=== PATIENT | female | born 1975 | race Caucasian/White ===

== ENCOUNTER 2016-11-04 08:00 | Emergency (ER) | payer MEDICARE, OTHER ==
[2016-11-04 08:22] VITALS: BP 138/94
[2016-11-04] MEDS ORDERED: diphenhydrAMINE HCL 50 MG/ML VIAL IV ONE (08:23)
[2016-11-04] MEDS ORDERED: KETOROLAC TROMETHAMINE 30 MG/ML VIAL IV ONE (08:23)
[2016-11-04] MEDS ORDERED: NORMAL SALINE 1,000 ML IV ONE (08:23)
[2016-11-04] MEDS ORDERED: HYDROcodone/ACETAMINOPHEN 1 EACH TABLET PO ONE (08:23)
[2016-11-04] MEDS ORDERED: METOCLOPRAMIDE HCL 5 MG/ML VIAL IV ONE (08:23)
--- OUTSIDE RECORDS SUMMARY | 2016-11-04 08:26 | XMS REPORT | Continuity of Care Document ---
:1975 Author Organization [facility] ([facility]) Address [address] [place] [address] Phone [phone] Care Team Providers Name Role Phone NenaRupinderCresencio Robin Primary Care Provider [phone] Source Comments This disclosure is being made pursuant to the Care Everywhere program, applicable federal and state laws, and may not contain all informaitonavailable regarding this patient.[facility] ([facility]) Active Allergies and Adverse Reactions Allergen Noted Date Severity Reactions Comments Morphine 02/25/2015 Rash Current Medications Prescription Sig. Disp. Refills Start Date End Date Status ALPRAZolam 1 mg Take 1 mg by mouth 3 Active tablet times daily as needed (anxiety). busPIRone 30 mg Take 30 mg by mouth Active tablet 2 times daily. bisacodyl 5 mg EC Take 5 mg by mouth Active tablet every 2 days as needed for Constipation. psyllium (METAMUCIL Take 3.4 g by mouth Active SF) powder every 48 hours. Dilute in at least 8 ounces of water. zonisamide 100 mg Take 200 mg by mouth Active capsule 2 times daily. lansoprazole 30 mg Take 30 mg by mouth Active capsule 2 times daily. sodium chloride 0.9 Use to dampen gauze 2 Bottle 3 04/25/2016 Active % irrigation simethicone 80 mg Take 1 tablet (80 mg 60 tablet 1 05/09/2016 Active chewable tablet total) by mouth 4 times daily as needed for Flatulence. Adhesive Tape 1 Patch by Apply 10 Each 1 05/09/2016 Active (MEDIPORE) 2 X 10 externally route 2 "-yard tape times daily. buPROPion Take 450 mg by mouth Active (WELLBUTRIN XL) 150 every morning. mg extended release tablet 24 hour docusate 100 mg Take 200 mg by mouth Active capsule 2 times daily. sucralfate 1000 mg Take 1,000 mg by Active tablet mouth before meals and at bedtime as needed. lidocaine 5 % Apply topically 2 Active ointment times daily as needed. hydrOXYzine pamoate Take 100 mg by mouth Active 100 mg capsule every 8 hours as needed for Anxiety. mirtazapine 45 mg Take 45 mg by mouth Active tablet at bedtime. albuterol 90 Use 1 Puff by Active mcg/Actuation inhalation every 4 inhaler hours as needed. oxyCODONE-acetamino Take 1-2 tablets by 85 tablet 0 07/17/2016 Active phen 5-325 mg per mouth every 4 hours tablet as needed for pain. Do NOT exceed 4000 mg of acetaminophen per 24 hours. polyethylene glycol Take 17 g by mouth 30 Each 0 07/17/2016 Active 3350 17 gram packet daily as needed. oxyCODONE-acetamino Take 1-2 tablets by 20 tablet 0 07/27/2016 Active phen 5-325 mg per mouth every 6 hours tablet as needed. Do NOT exceed 4000 mg of acetaminophen per 24 hours. sennosides 8.6 mg Take 1 tablet (8.6 50 tablet 0 07/27/2016 Active tablet mg total) by mouth 2 times daily. docusate 100 mg Take 1 capsule (100 50 capsule 0 07/27/2016 Active capsule mg total) by mouth 2 times daily as needed. Active Problems Problem Noted Date PONV (postoperative nausea and vomiting) 07/16/2016 Wound infection after surgery 04/20/2016 Sepsis (A41.9) 04/17/2016 Hypokalemia 04/07/2016 Overview: Replete potassium and monitor levels Hypophosphatemia 04/07/2016 Overview: Replete and monitor levels Marginal ulcer 04/04/2016 Gastric perforation 04/04/2016 Chronic back pain 02/26/2015 Most Recent Encounters Date Type Specialty Providers Description 08/23/2016 Hospital Encounter Acute Care Surgery Default, Other Chief Comp : Patient Billg - Defo Reported Reason For Visit Social History Tobacco Use Types Packs/Day Years Used Date Current Every Day Smoker Cigarettes 0.25 Smokeless Tobacco: Never Used Last Filed Vital Signs Vital Sign Reading Time Taken Blood Pressure 126/82 07/27/2016 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 82 07/27/2016 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 Temperature 36.5 C (97.7 F) 07/27/2016 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 Respiratory Rate 16 07/17/2016 3:28 PM CDT Height 1.549 m (5' 1") 07/17/2016 4:47 AM CDT Weight 64.05 kg (141 lb 3.3 oz) 07/27/2016 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 Body Mass Index 26.69 07/27/2016 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 Oxygen Saturation 98% 07/17/2016 11:58 AM CDT Plan of Care Date Type Specialty Providers Description 12/04/2016 Appointment Srg Tristen Anand MD Chief Comp: Patient [address] [place] [address] [phone] (Fax) Health Maintenance Due Date Last Done Comments Hepatitis B Vaccine (1 of 3 - Primary Series) 1975 Tdap Vaccine 1986 Lipid Disorder Screening 1993 MMR Vaccine 1993 Td Vaccine 1993 Pneumococcal Vaccine (1 of 1 - PPSV23) 1994 Cervical Cancer Screening 2005 Mammogram 2015 Influenza Vaccine: Seasonal (#1) 04/16/2016 Results from Last 3 Months Not on file
[2016-11-04] MEDS ORDERED: HYDROcodone/ACETAMINOPHEN 1 EACH TABLET ONE (08:29)
[2016-11-04] MEDS ORDERED: DIVALPROEX SODIUM 500 MG TABLET.DR PO ONE (08:45)
--- NOTE | 2016-11-04 08:48 | ERNOTE ---
Upper Extremity HPI - Narrative Date of Service: 11/04/16 - General Extremities Pain Location: shoulder: left Time Seen by Provider: 11/04/16 08:11 Source: patient, family Exam Limitations: no limitations - Immun/Allergies/Home Medications Immunizations: IMMUNIZATION HX Immunizations Up to Date Yes History of Influenza Vaccine No Hx Pneumococcal Vaccination No Allergies/Adverse Reactions: Allergies Allergy/AdvReac Type Severity Reaction Status Date / Time No Known Drug Allergies Allergy Verified 09/11/16 11:45 Home Medications: HOME MEDICATIONS Lansoprazole [Prevacid] 30 mg PO DAILY 08/17/12 [Last Taken 01/29/16] Cyanocobalamin (Vitamin B-12) [Vitamin B-12] 1 tab PO DAILY 10/04/12 [Last Taken 01/29/16] Albuterol Sulfate [Albuterol Sulfate Hfa] 2 puff IH Q4H PRN 09/24/13 [Last Taken Unknown] Bupropion HCl [Wellbutrin Xl] 150 mg PO HS 10/11/13 [Last Taken 01/28/16 21:00] Albuterol Sulfate 2.5 mg IH Q4H PRN #25 vial.neb 11/28/15 [Last Taken Unknown] Alprazolam [Xanax Xr] 3 mg PO DAILY 01/29/16 [Last Taken 01/29/16] Bupropion HCl [Wellbutrin] 300 mg PO DAILY 01/29/16 [Last Taken 01/29/16] Trazodone HCl [Oleptro ER] 150 mg PO HS 01/29/16 [Last Taken 01/28/16 21:00] Zonisamide 50 mg PO TID 01/29/16 [Last Taken 01/29/16 17:00] hydrOXYzine PAMOATE [Vistaril] 100 mg PO BID 01/30/16 [Last Taken 01/29/16] Bisacodyl [Laxative] 5 mg PO Q48H PRN #60 tablet 03/11/16 [Last Taken Unknown] Polyethylene Glycol 3350 [Miralax] 17 gm PO BID #1 bottle 03/11/16 [Last Taken Unknown] Psyllium Husk (with Sugar) [Metamucil] 1 each PO BID #1 bottle 03/11/16 [Last Taken Unknown] Promethazine HCl [Phenergan] 25 mg PO QID PRN #30 tab 05/29/16 [Last Taken Unknown] Fluconazole [Diflucan] 150 mg PO DAILY #1 tablet 07/21/16 [Last Taken Unknown] Vicodin 5-300 mg Tablet 10/19/16 [Last Taken Unknown] Divalproex Sodium [Depakote ER] 500 mg PO DAILY #30 tab 11/04/16 [Last Taken Unknown] HYDROcodone/ACETAMINOPHEN [[place] 5-325] 2 tab PO QID PRN #32 tab 11/04/16 [Last Taken Unknown] - History of Present Illness Narrative: Recent left shoulder surgery by Dr. Carballo. Prolong PT course is planned. May take 6-12 months to recover. Doing PT at [facility]. Out of pain meds. Dr. Carballo' office said he is out of town due to a in the family, and won' t be back till Saturday next week. She has an appt with him next week. The office instructed her to go to an emergency room to get her pain med refilled till then. About a week ago, while in the car, had a generalized tonic clonic seizure. Witnessed by spouse. No prior. Incommunicado during. Incontinent of urine. Drowsy after. Headache and facial pain ever since. Facial pain has been treated as a sinus infection. Neither Levaquin nor Zithromax have helped. There is a history of migraine. Occurred: other Location of Incident: other Severity: moderate Method of Injury: Reports: other Reason for Fall: Reports: other - no fall Loss of Consciousness: Reports: prolonged (minutes) Modifying Factors - (Improves): Reports: other - nothin Modifying Factors - (Worsens): Reports: jarring, movement - worsens left shoulder pain Associated Symptoms: Reports: weakness, loss of power (lt arm) Other Injuries: Reports: none Prior Treament: Reports: recently seen, treated by physician. Denies: currently on antibiotics Review of Systems - Review of Systems Constitutional: Present: no symptoms reported EYE: Present: no symptoms reported ENT: Present: See HPI Respiratory: Present: no symptoms reported Cardiology: Present: no symptoms reported Gastrointestinal/Abdominal: Present: no symptoms reported Genitourinary: Present: no symptoms reported Musculoskeletal: Present: See HPI Skin: Present: no symptoms reported Neurological: Present: See HPI Endocrine: Present: no symptoms reported Hematologic/Lymphatic: Present: no symptoms reported Psych: Present: no symptoms reported All Other Systems: All systems neg except as marked - Patient's Past Medical History Patient History - Medical: ADHD, Anxiety, Chronic Pain, Diabetes Type 2, Depression, Migraines Patient History - Cardiac/Respiratory: No pertinent hx Patient History - Cancer: No Hx of Cancer Patient History - Surgical Procedures: Back Surgery, Cholecystectomy, Colon Resection, Colonoscopy, EGD, Gastric Bypass, Hysterectomy, Tubal Ligation, Other Patient History - Other: None LMP (females 10-50): hysterectomy - Family History Mother Family History - Medical: History Unknown faher Family History - Medical: History Unknown, Other Family History - Cardiac/Respiratory: Coronary Heart Disease - Social History Living Situations: significant other Abuse History: No History of abuse Psych History: No pertinent hx Does anyone smoke in the home?: Yes Smoking Status: Current every day smoker Have you smoked in the past 12 months: Yes Do you dip or chew tobacco: No Alcohol Use: none Drug Use: none - Immunizations Immunizations Up to Date: Yes Hx Pneumococcal Vaccination: No History of Influenza Vaccine: No Physical Exam - Physical Exam General Appearance: Present: wd/wn, alert, no apparent distress Eye Exam: Normal inspection: bilateral, PERRL: bilateral, EOMI: bilateral Ears, Nose, Throat: Present: normal ENT inspection, hearing grossly normal Neck: Present: normal inspection, tender lateral, tender posterior midline Respiratory: Present: no respiratory distress, normal breath sounds Cardiovascular/Chest: Present: regular rate, rhythm, no murmur Gastrointestinal/Abdominal: Present: normal bowel sounds, nontender, nondistended, soft, no organomegaly Back Exam: Present: vertebral tenderness - LS spine tender Extremity Exam: Present: normal inspection, no edema Neurological Exam: Present: alert, oriented, normal mood/affect Skin Exam: Present: normal color, warm/dry ED Progress - Results and Orders Patient's Lab Results:: I have reviewed the patient's lab results. - Vital Signs Patient's Vital Signs:: I have reviewed the patient's vital signs. Vital Signs: Vital Signs 11/04/16 08:09 Pulse Rate 92 Respiratory 16 Rate Blood Pressure 138/94 O2 Sat by Pulse 98 Oximetry - CT/Ultrasound CT/Ultrasound Narrative: I reviewed the CT of the brain and sinuses report, normal. - Progress/Reassessment Chief Complaint: Shoulder Injury/Pain Progress Note-Subjective: 11/04/16 10:04 Unable to obtain IV access while in the ER, so intended meds were given IM. CT of head and sinuses normal. Probably had her first seizure a week ago. Will start with anti seizure medicine and advise careful followup next week. Departure Clinical Impression: multiple medical problems. , Seizure Chronic pain Qualifiers: Chronic pain type: chronic pain syndrome Qualified Code(s): G89.4 - Chronic pain syndrome Migraine Qualifiers: Migraine type: without aura Status migrainosus presence: without status migrainosus Intractability: not intractable Qualified Code(s): G43.009 - Migraine without aura, not intractable, without status migrainosus - Departure Disposition: Home self-care Condition: Good Instructions: Seizure, Adult, [id number], Chronic Pain, Migraine Headache, [id number] Additional Instructions: Followup with your doctor next week. You need a brain MRI and an EEG. Continue with your physical therapy. [place] and [place] law prohibit driving until you have been seizure free for 6 months. Prescriptions: Divalproex Sodium [Depakote ER] 500 mg PO DAILY #30 tab HYDROcodone/ACETAMINOPHEN [[place] 5-325] 2 tab PO QID PRN #32 tab PRN Reason: Pain
[2016-11-04] MEDS ORDERED: KETOROLAC TROMETHAMINE 60 MG/2 ML VIAL IM ONE ×2 (09:59→10:06)
[2016-11-04] MEDS ORDERED: diphenhydrAMINE HCL 50 MG/ML VIAL IM ONE (09:59)
[2016-11-04] MEDS ORDERED: METOCLOPRAMIDE HCL 5 MG/ML VIAL IM ONE (09:59)
[2016-11-04] MEDS ORDERED: METOCLOPRAMIDE HCL 5 MG/ML VIAL ONE (10:06)
[2016-11-04] MEDS ORDERED: diphenhydrAMINE HCL 50 MG/ML VIAL ONE (10:06)
== END 2016-11-04 10:24 | disposition home or self-care (01) ==
LOC: ER 08:00
DX: R56.9 Unspecified convulsions (principal); G43.009 Migraine without aura, not intractable, without status migrainosus; F17.210 Nicotine dependence, cigarettes, uncomplicated

== ENCOUNTER 2016-12-31 20:08 | Emergency (ER) | payer MEDICARE, OTHER ==
[2016-12-31 20:30] VITALS: BP 121/78
[2016-12-31] MEDS ORDERED: DICYCLOMINE HCL 10 MG/ML AMPUL IM ONE ×2 (21:07→22:19)
[2016-12-31] MEDS ORDERED: METOCLOPRAMIDE HCL 5 MG/ML VIAL IV ONE (21:07)
--- OUTSIDE RECORDS SUMMARY | 2016-12-31 21:12 | XMS REPORT | Continuity of Care Document ---
:1975 Author Organization [facility] ([facility]) Address [address] [place] [address] Phone [phone] Care Team Providers Name Role Phone NenaRupinderCresencio Robin Primary Care Provider [phone] Source Comments This disclosure is being made pursuant to the Care Everywhere program, applicable federal and state laws, and may not contain all informaitonavailable regarding this patient.[facility] ([facility]) Active Allergies and Adverse Reactions Allergen [...] Recent Encounters Date Type Specialty Providers Description 12/04/2016 Office Visit SrTristen Courtney MD Chief Comp: Patient Reported Reason For Visit Social History Tobacco Use Types Packs/Day Years Used Date Current Every Day Smoker Cigarettes 0.25 Smokeless Tobacco: Never Used Last Filed Vital Signs Vital Sign Reading Time Taken Blood Pressure 126/82 07/27/2016 9:[address] [employer]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
--- OUTSIDE RECORDS SUMMARY | 2016-12-31 21:12 | XMS REPORT | Continuity of Care Document ---
:1975 Author Organization [facility] [place] [address] Care Team Providers Name Role Phone Bernardo Resendez V Primary Care Provider [phone] Source Comments This disclosure is being made pursuant to the 10Six program and maynot contain all information available regarding this patient.[facility] Active Allergies and Adverse Reactions Allergen Noted Date Severity Reactions Comments Morphine Sulfate 12/23/2016 Unknown Current Medications Be aware that medications may not be up to date as of this document. Alwaysverify current medications with the patient. Prescription Sig. Disp. Refills Start Date End Date Status PROAIR HFA 108 (90 Inhale 1 puff 3 10/08/2016 Active Base) MCG/ACT inhaler into the lungs every 4 (four) to 6 (six) hours as needed. alprazolam (XANAX) 2 Take 1 tablet 0 12/17/2016 Active MG tablet by mouth 2 (two) times daily. And as needed buPROPion XL Take 1 tablet 1 12/17/2016 Active (WELLBUTRIN XL) 300 MG by mouth 24 hr tablet daily. Take with 150 mg to equal 450 mg daily buPROPion XL Take 1 tablet 1 12/17/2016 Active (WELLBUTRIN XL) 150 MG by mouth 24 hr tablet daily. Take with 300 mg tab to equal 450 mg oral daily. carisoprodol (SOMA) Take 1 tablet 0 12/17/2016 Active 350 MG tablet by mouth 4 (four) times daily. HYDROcodone-acetaminop Take 1 tablet 0 12/17/2016 Active hen (NORCO) 5-325 MG by mouth every per tablet 8 (eight) hours as needed. hydrOXYzine (VISTARIL) Take 1 capsule 1 12/17/2016 Active 100 MG capsule by mouth 3 (three) times daily as needed. For anxiety sucralfate (CARAFATE) Take 1 tablet 3 12/17/2016 Active 1 g tablet by mouth 4 (four) times daily. zonisamide (ZONEGRAN) Take 2 1 12/17/2016 Active 100 MG capsule capsules by mouth 2 (two) times daily. lisinopril Take 5 mg by 2 12/17/2016 Active (PRINIVIL,ZESTRIL) 5 mouth daily. MG tablet magnesium citrate Take 296 mLs 296 mL 0 12/31/2016 12/31/2016 Active solution by mouth once. cyclobenzaprine Take 1 tablet 2 11/10/2016 12/31/2016 Discontinued (FLEXERIL) 10 MG by mouth 3 tablet (three) times daily. divalproex ER Take 500 mg by 0 11/04/2016 12/31/2016 Discontinued (DEPAKOTE EXTENDED mouth daily. RELEASE) 500 MG 24 hr tablet Active Problems Problem Noted Date GERD (gastroesophageal reflux disease) 12/23/2016 Essential hypertension, benign 12/23/2016 Post traumatic stress disorder (PTSD) 12/23/2016 Generalized anxiety disorder 12/23/2016 Bipolar disorder (HCC) 12/23/2016 Most Recent Encounters Date Type Specialty Providers Description 12/31/2016 Office Visit Family Medicine Bernardo Resendez V, Weight gain ( Primary Dx); Chronic low back pain without sciatica, unspecified back pain laterality; Constipation, unspecified constipation type 12/26/2016 Orders Only Provider, Not In System 12/23/2016 Abstract Family Medicine Krystal Quiroga RN Social History Tobacco Use Types Packs/Day Years Used Date Current Every Day Smoker 0.5 Alcohol Use Drinks/Week oz/Week Comments No Last Filed Vital Signs Vital Sign Reading Time Taken Blood Pressure 142/87 12/31/2016 9:24 AM CDT Pulse 98 12/31/2016 9:24 AM CDT Temperature 36.3 C (97.4 F) 12/31/2016 9:24 AM CDT Respiratory Rate 20 12/31/2016 9:24 AM CDT Height 1.6 m (5' 3") 12/31/2016 9:24 AM CDT Weight 81.375 kg (179 lb 6.4 oz) 12/31/2016 9:24 AM CDT Body Mass Index 31.79 12/31/2016 9:24 AM CDT Oxygen Saturation 97% 12/31/2016 9:24 AM CDT Plan of Care Health Maintenance Due Date Last Done Comments Pneumococcal Medium Risk 19-64 yo (1 of 1 - PPSV23) 1994 Tetanus/Pertussis (1 - Tdap) 1994 Pap Smear 1996 Influenza Immunization (#1) 2016 Results from Last 3 Months TSH (12/19/2016)Comprehensive metabolic panel (12/19/2016)CBC auto differential (12/19/2016) Component Value Range WBC Count 7.17 10^3/mL RBC 4.60 10^6/L Hemoglobin 10.7 g/dL Hematocrit 39.7 % Platelets 433 K/L Specimen BLOOD Narrative See scanned result 4-17
[2016-12-31] MEDS ORDERED: NALBUPHINE HCL 20 MG/ML AMPUL IV ONE (21:13)
--- OUTSIDE RECORDS SUMMARY | 2016-12-31 21:13 | XMS REPORT | Summary of Care ---
:1975 Author Organization [facility] Address [address] [place] [address] Care Team Providers Name Role Phone Catherine Romero Primary Care Physician Encounter Date(s): 10/17/16 - 10/17/16 [facility], [address] [place], [place] [address] Discharge Diagnosis: Rectal prolapse Discharge Disposition: Discharged to Home or Self Care Attending Physician: Tiffanie Delacruz DO Referring Physician: Tiffanie Delacruz DO Vital Signs Most recent to oldest [Reference Range]: 1 Blood Pressure [90-130/60-90 mmHg] 126/88mmHg (10/17/16 9:36 AM) Mean Arterial Pressure, Cuff 101 mmHg (10/17/16 9:36 AM) Most recent to oldest [Reference Range]: 1 Height/Length Measured 162 cm (10/17/16 9:36 AM) Weight Dosing 72.30 kg1 (10/17/16 9:39 AM) Weight Measured 72.3 kg (10/17/16 9:36 AM) BSA Measured 1.77 m2 (10/17/16 9:36 AM) Body Mass Index Measured 27.55 kg/m2 (10/17/16 9:36 AM) 1Result Comment: This result was because the dosing weight was either not entered or it is>30 days old. This result is based off: Weight Measured October 17, 2016 09:36:00 WELLNESS PROGRAM MANAGER by Kusum Carney RN Problem List Condition Effective Dates Status Health Status Informant Anxiety(Confirmed) Active patient COPD (chronic obstructive pulmonary Active patient disease)(Confirmed) Depression(Confirmed) Active patient MRSA(Confirmed)2009 Active patient Left shoulder strain(Confirmed) Active Incontinence of urine(Confirmed) Active 1in facial wound Allergies, Adverse Reactions, Alerts Substance Reaction Severity Status morphine hive Active Medications buPROPion 150 mg/12 hours (SR) oral tablet, extended release 1 tab(s), Oral, Daily, # 60 tab(s), 0 Refill(s), Start Date: 11/07/15 9:50:00 WELLNESS PROGRAM MANAGER Start Date: 11/07/15 Status: OrderedbuPROPion 300 mg/24 hours (XL) oral tablet, extended release 1 tab(s), Oral, Daily, take with 150 dose for a total of 450mg, # 30 tab(s), 0 Refill(s), Start Date: 06/13/16 14:02:00 CDT Special Instructions: take with 150 dose for a total of 450mg Start Date: 06/13/16 Status: OrderedbusPIRone 30 mg oral tablet 1 tab(s), Oral, BID, # 180 tab(s), 0 Refill(s), Start Date: 06/13/16 14:05:00 CDT Start Date: 06/13/16 Status: OrderedCarafate 1 g oral tablet 1 tab(s), Oral, QID, # 120 tab(s), 0 Refill(s), Start Date: 11/18/15 15:16:00 WELLNESS PROGRAM MANAGER Start Date: 11/18/15 Status: OrderedColace 100 mg oral capsule 1 cap(s), Oral, BID, PRN for constipation, # 20 cap(s), 0 Refill(s), Start Date : 06/13/16 14:06:00 CDT Start Date: 06/13/16 Stop Date: 07/03/16 Status: CompletedCombivent Respimat CFC free 20 mcg-100 mcg/inh inhalation aerosol 1 puff(s), Inhale, QID, # 4 gm, 0 Refill(s), Start Date: 11/07/15 9:51:00 WELLNESS PROGRAM MANAGER Special Instructions: PT states not taking Start Date: 11/07/15 Stop Date: 11/18/15 Status: Discontinueddiazepam 5 mg oral tablet 2 tab(s), Oral, TID, PRN for anxiety, 0 Refill(s), Start Date: 11/18/15 15:13: 00 WELLNESS PROGRAM MANAGER Start Date: 11/18/15 Stop Date: 03/01/16 Status: Completeddicyclomine 20 mg oral tablet 2 tab(s), Oral, QID, PRN pain moderate 4-7, 0 Refill(s), Start Date: 07/03/16 12 :45:00 CDT Start Date: 07/03/16 Status: OrderedDiflucan 150 mg oral tablet 1 tab(s), Oral, ONETIME, TAKE WHEN ABX ARE COMPLETE, # 1 tab(s), 0 Refill(s), Start Date: 07/03/16 16:10:00 CDT Special Instructions: TAKE WHEN ABX ARE COMPLETE Start Date: 07/03/16 Stop Date: 07/03/16 Status: CompletedFlexeril 10 mg oral tablet 1 tab(s), Oral, TID, PRN pain moderate 4-7, Do not work or drive with this medication, # 15 tab(s), 0 Refill(s), Start Date: 06/13/16 16:06:00 CDT Special Instructions: Do not work or drive with this medication Start Date: 06/13/16 Stop Date: 07/03/16 Status: CompletedHYDROcodone-acetaminophen 5mg-325mg oral tablet 1 tab(s), Oral, q6hr, PRN for pain, # 30 tab(s), 0 Refill(s), Start Date: 14:38:00 CDT, Pharmacy: [place], [place] Start Date: 07/05/16 Stop Date: 08/03/16 Status: CompletedhydrOXYzine pamoate 100 mg oral capsule 1 cap(s), Oral, TID, PRN for anxiety, 0 Refill(s), Start Date: 07/03/16 12:38: 00 CDT Start Date: 07/03/16 Status: OrderedhydrOXYzine pamoate 25 mg oral capsule 1 cap(s), Oral, TID, PRN for anxiety, # 40 cap(s), 0 Refill(s), Start Date: 14:06:00 CDT Start Date: 06/13/16 Stop Date: 07/03/16 Status: Completedlansoprazole 30 mg oral delayed release capsule 1 cap(s), Oral, Daily, 0 Refill(s), Start Date: 11/07/15 9:49:00 WELLNESS PROGRAM MANAGER Start Date: 11/07/15 Status: Orderedmirtazapine 15 mg oral tablet 2 tab(s), Oral, HS, # 30 tab(s), 0 Refill(s), Start Date: 06/13/16 14:08:00 CDT Start Date: 06/13/16 Status: OrderedMytab Gas 80 mg oral tablet, chewable 1 tab(s), Chewed, QID, # 12 tab(s), 0 Refill(s), Start Date: 06/13/16 14:06:00 CDT Start Date: 06/13/16 Stop Date: 07/03/16 Status: CompletedNorco 5 mg-325 mg oral tablet 1 tab(s), Oral, TID, LAST RX/MD MOE, # 60 tab(s), 0 Refill(s), Start Date: 03/01 11:32:00 CDT Special Instructions: LAST RX/MD MOE Start Date: 03/01/16 Stop Date: 06/13/16 Status: CompletedOmnicef 300 mg oral capsule 1 cap(s), Oral, q12hr, X 7 days, # 14 cap(s), 0 Refill(s), Start Date: 07/03/16 16:10:00 CDT Start Date: 07/03/16 Stop Date: 07/10/16 Status: Completedorphenadrine 100 mg oral tablet, extended release 1 tab(s), Oral, TID, PRN anxiety, # 20 tab(s), 0 Refill(s), Start Date: 14:07:00 CDT Start Date: 06/13/16 Stop Date: 06/23/16 Status: OrderedoxyCODONE-acetaminophen 5 mg-325 mg oral tablet See Instructions, 1 tab(s) Oral q4-6hr interval Max 7 per day, # 120 tab(s), 0 Refill(s), Start Date: 07/28/15 14:55:00 WELLNESS PROGRAM MANAGER, other reason (Rx) Special Instructions: 1 tab(s) Oral q4-6hr interval Max 7 per day Start Date: 07/28/15 Stop Date: 11/07/15 Status: CompletedoxyCODONE-acetaminophen 5 mg-325 mg oral tablet 1 tab(s), Oral, q4hr, PRN for pain, 0 Refill(s), Start Date: 07/03/16 12:47:00 CDT Start Date: 07/03/16 Stop Date: 08/03/16 Status: CompletedoxyCODONE-acetaminophen 5 mg-325 mg oral tablet See Instructions, 1 tab(s) Oral q4-6hr interval Max 7 per day, # 90 tab(s), 0 Refill(s), Start Date: 07/01/15 12:08:00 CDT, other reason (Rx) Special Instructions: 1 tab(s) Oral q4-6hr interval Max 7 per day Start Date: 07/01/15 Stop Date: 08/01/15 Status: CompletedoxyCODONE-acetaminophen 5 mg-325 mg oral tablet 2 tab(s), Oral, q6hr, PRN for pain, 0 Refill(s), Start Date: 11/18/15 15:13:00 WELLNESS PROGRAM MANAGER Start Date: 11/18/15 Stop Date: 11/22/15 Status: DiscontinuedPercocet 10/325 oral tablet 1 tab(s), Oral, q4hr, PRN for pain, Max 6 per day, X 30 days, # 90 tab(s), 0 Refill(s), Start Date: 11/22/15 12:26:00 WELLNESS PROGRAM MANAGER, other reason (Rx) Special Instructions: Max 6 per day Start Date: 11/22/15 Stop Date: 12/22/15 Status: CompletedPercocet 5/325 oral tablet 1 or 2 tabs, Oral, q4hr, PRN pain moderate 4-7, Do not work or drive with this medication, X 7 days, # 10 tab(s), 0 Refill(s), Start Date: 06/13/16 15:57:00 CDT Special Instructions: Do not work or drive with this medication Start Date: 06/13/16 Stop Date: 06/20/16 Status: CompletedPercocet 5/325 oral tablet 1-2 tabs, Oral, q6hr interval, X 10 days, # 40 tab(s), 0 Refill(s), Start Date: 08/07/16 9:33:00 WELLNESS PROGRAM MANAGER Start Date: 08/07/16 Stop Date: 08/17/16 Status: CompletedProAir HFA 90 mcg/inh inhalation aerosol 1 puff(s), Inhale, q4hr, PRN for wheezing, # 1 boxes, 0 Refill(s), Start Date: 11/07/15 9:51:00 WELLNESS PROGRAM MANAGER Start Date: 11/07/15 Status: Orderedpromethazine 25 mg oral tablet 1 tab(s), Oral, QID, PRN for nausea/vomiting, # 60 tab(s), 0 Refill(s), Start Date: 07/03/16 12:44:00 CDT Start Date: 07/03/16 Status: OrderedSoma 350 mg oral tablet 1 tab(s), Oral, QID, 0 Refill(s), Start Date: 11/07/15 9:50:00 WELLNESS PROGRAM MANAGER Special Instructions: PT states not taking Start Date: 11/07/15 Stop Date: 11/18/15 Status: DiscontinuedValium 5 mg oral tablet See Instructions, 1 tab(s) Oral ONETIME 30-45 minutes prior to procedure, # 1 tab(s), 0 Refill(s), Start Date: 01/20/16 9:57:00 CDT, Pharmacy: [place], [place] Special Instructions: 1 tab(s) Oral ONETIME 30-45 minutes prior to procedure Start Date: 01/20/16 Stop Date: 03/01/16 Status: CompletedXanax 1 mg oral tablet 1 tab(s), Oral, TID, PRN for anxiety, 0 Refill(s), Start Date: 06/13/16 14:05: 00 CDT Start Date: 06/13/16 Status: Orderedzonisamide 100 mg oral capsule 2 cap(s), Oral, BID, # 120 cap(s), 0 Refill(s), Start Date: 07/03/16 12:41:00 CDT Start Date: 07/03/16 Status: Orderedzonisamide 25 mg oral capsule 1 cap(s), Oral, TID, # 60 cap(s), 0 Refill(s), Start Date: 06/13/16 14:01:00 CDT Start Date: 06/13/16 Stop Date: 07/03/16 Status: Completed Results No data available for this section Immunizations No data available for this section Procedures Procedure Date Related Diagnosis Body Site Arthroscopy Shoulder (Left)1 08/07/16 Laparotomy2 04/14/16 Fusion Cervical (SCIP)3 11/21/15 Cholecystectomy Gastric bypass H/O tubal ligation H/O: hysterectomy Laminectomy4 1auto-populated from documented surgical [id number] states for perforated [id number] from documented surgical [id number] fusion for L4 and L5 Social History No data available for this section Assessment and Plan No data available for this section
--- OUTSIDE RECORDS SUMMARY | 2016-12-31 21:13 | XMS REPORT | Summary of Care ---
:1975 Author Organization [facility] Address [address] [place] [id number] Care Team Providers Name Role Phone Fernandaramon Catherine Primary Care Physician Encounter Date(s): 10/26/16 - 10/26/[address] [address]- [facility] Discharge Diagnosis: Acute maxillary sinusitis Discharge Disposition: 01 Discharged to Home or Self Care Attending Physician: Juan C Guardado MD Admitting Physician: Juan C Guardado MD Vital Signs Most recent to oldest 1 2 3 [Reference Range]: Temperature Temporal Artery 37.0 DegC [36.0-38.0 DegC] (10/26/16 10:18 AM) Heart Rate Monitored [60-100 80 bpm 81 bpm 91 bpm bpm] (10/26/16 1:30 PM) (10/26/16 1:00 PM) (10/26/16 12:25 PM) Respiratory Rate [12-20 16 br/min 16 br/min 16 br/min br/min] (10/26/16 1:30 PM) (10/26/16 1:00 PM) (10/26/16 12:25 PM) SpO2 97 % 95 % 98 % (10/26/16 1:30 PM) (10/26/16 1:00 PM) (10/26/16 12:30 PM) Blood Pressure [90-130/60-90 105/62mmHg 105/62mmHg 120/71mmHg mmHg] (10/26/16 1:30 PM) (10/26/16 1:00 PM) (10/26/16 12:30 PM) Mean Arterial Pressure 71 mmHg 71 mmHg 82 mmHg Monitor Measure (10/26/16 1:30 PM) (10/26/16 1:00 PM) (10/26/16 12:30 PM) Most recent to oldest [Reference Range]: 1 2 3 Weight Estimated 68.03 kg (10/26/16 10:18 AM) Weight Dosing 68.03 kg1 (10/26/16 10:20 AM) 1Result Comment: This result was because the dosing weight was either not entered or it is>30 days old. This result is based off: Weight Estimated October 26, 2016 10:18:00 BASKETBALLS AND FOOTBALLS REVERSER by Bisi Arreguin RN Problem List Condition Effective Dates Status Health Status Informant Acute maxillary sinusitis(Confirmed) Active Anxiety(Confirmed) Active patient COPD (chronic obstructive pulmonary Active patient disease)(Confirmed) Depression(Confirmed) Active patient MRSA(Confirmed)2009 Active patient Left shoulder strain(Confirmed) Active Incontinence of urine(Confirmed) Active 1in facial wound Allergies, Adverse Reactions, Alerts Substance Reaction Severity Status morphine hive Active Medications amoxicillin 875 mg oral tablet 1 tab(s), Oral, BID, # 20 tab(s), 0 Refill(s), Start Date: 10/26/16 13:03:00 BASKETBALLS AND FOOTBALLS REVERSER Start Date: 10/26/16 Stop Date: 11/05/16 Status: OrderedbuPROPion 150 mg/12 hours (SR) oral tablet, extended release 1 tab(s), Oral, Daily, # 60 tab(s), 0 Refill(s), Start Date: 11/07/15 9:50:00 BASKETBALLS AND FOOTBALLS REVERSER Start Date: 11/07/15 Status: OrderedbuPROPion 300 mg/24 [...] tab(s), 0 Refill(s), Start Date: 11/18/15 15:16:00 BASKETBALLS AND FOOTBALLS REVERSER Start Date: 11/18/15 Status: OrderedColace 100 mg oral capsule 1 cap(s), Oral, BID, PRN for constipation, # 20 cap(s), 0 Refill(s), Start Date : 06/13/16 14:06:00 CDT Start Date: 06/13/16 Stop Date: 07/03/16 Status: CompletedCombivent Respimat CFC free 20 mcg-100 mcg/inh inhalation aerosol 1 puff(s), Inhale, QID, # 4 gm, 0 Refill(s), Start Date: 11/07/15 9:51:00 BASKETBALLS AND FOOTBALLS REVERSER Special Instructions: PT states not taking Start Date: 11/07/15 Stop Date: 11/18/15 Status: Discontinueddiazepam 5 mg oral tablet 2 tab(s), Oral, TID, PRN for anxiety, 0 Refill(s), Start Date: 11/18/15 15:13: 00 BASKETBALLS AND FOOTBALLS REVERSER Start Date: 11/18/15 Stop Date: 03/01/16 Status: Completeddicyclomine 20 mg oral tablet 2 tab(s), Oral, QID, PRN pain moderate 4-7, 0 Refill(s), Start Date: 07/03/16 12 :45:00 CDT Start Date: 07/03/16 Stop Date: 10/26/16 Status: CompletedDiflucan 150 mg oral tablet 1 tab(s), Oral, [...] 0 Refill(s), Start Date: 14:38:00 CDT, Pharmacy: [place], [place] Start Date: 07/05/16 Stop Date: 08/03/16 [...] Daily, 0 Refill(s), Start Date: 11/07/15 9:49:00 BASKETBALLS AND FOOTBALLS REVERSER Start Date: 11/07/15 Status: Orderedmirtazapine 15 mg oral tablet 2 tab(s), Oral, HS, # 30 tab(s), 0 Refill(s), Start Date: 06/13/16 14:08:00 CDT Start Date: 06/13/16 Stop Date: 10/26/16 Status: CompletedMytab Gas 80 mg oral tablet, chewable 1 tab(s), Chewed, QID, # 12 tab(s), 0 Refill(s), Start Date: 06/13/16 14:06:00 CDT Start Date: 06/13/16 Stop Date: 07/03/16 Status: CompletedNaprosyn 500 mg oral tablet 1 tab(s), Oral, BID, # 20 tab(s), 0 Refill(s), Start Date: 10/26/16 13:03:00 BASKETBALLS AND FOOTBALLS REVERSER Start Date: 10/26/16 Stop Date: 11/05/16 Status: OrderedNorco 5 mg-325 mg oral tablet 1 tab(s), Oral, TID, LAST RX/RDF,MD, # 60 tab(s), 0 Refill(s), Start Date: [...] tab(s), 0 Refill(s), Start Date: 07/28/15 14:55:00 BASKETBALLS AND FOOTBALLS REVERSER, other reason (Rx) Special Instructions: 1 tab(s) [...] pain, 0 Refill(s), Start Date: 11/18/15 15:13:00 BASKETBALLS AND FOOTBALLS REVERSER Start Date: 11/18/15 Stop Date: 11/22/15 Status: DiscontinuedPercocet 10/325 oral tablet 1 tab(s), Oral, q4hr, PRN for pain, Max 6 per day, X 30 days, # 90 tab(s), 0 Refill(s), Start Date: 11/22/15 12:26:00 BASKETBALLS AND FOOTBALLS REVERSER, other reason (Rx) Special Instructions: Max 6 [...] tab(s), 0 Refill(s), Start Date: 08/07/16 9:33:00 BASKETBALLS AND FOOTBALLS REVERSER Start Date: 08/07/16 Stop Date: 08/17/16 Status: CompletedProAir HFA 90 mcg/inh inhalation aerosol 1 puff(s), Inhale, q4hr, PRN for wheezing, # 1 boxes, 0 Refill(s), Start Date: 11/07/15 9:51:00 BASKETBALLS AND FOOTBALLS REVERSER Start Date: 11/07/15 Status: Orderedpromethazine 25 mg oral tablet 1 tab(s), Oral, QID, PRN for nausea/vomiting, # 60 tab(s), 0 Refill(s), Start Date: 07/03/16 12:44:00 CDT Start Date: 07/03/16 Stop Date: 10/26/16 Status: CompletedSoma 350 mg oral tablet 1 tab(s), Oral, QID, 0 Refill(s), Start Date: 11/07/15 9:50:00 BASKETBALLS AND FOOTBALLS REVERSER Special Instructions: PT states not taking Start Date: 11/07/15 Stop Date: 11/18/15 Status: DiscontinuedtraMADol 50 mg oral tablet 1 tab(s), Oral, q4hr interval, PRN as needed for pain, # 24 tab(s), 0 Refill(s) , Start Date: 10/26/16 13:03:00 BASKETBALLS AND FOOTBALLS REVERSER Start Date: 10/26/16 Stop Date: 10/31/16 Status: OrderedValium 5 mg oral tablet See Instructions, 1 tab(s) Oral ONETIME 30-45 minutes prior to procedure, # 1 tab(s), 0 Refill(s), Start Date: 01/20/16 9:57:00 CDT, Pharmacy: [place], [place] Special Instructions: 1 tab(s) Oral ONETIME [...] 06/13/16 Stop Date: 07/03/16 Status: Completed Results Patient Viewable Results Most recent to oldest [Reference Range]: 1 2 WBC [4.8-10.8 thou/mm3] 6.3 thou/mm3 (10/26/16 10:36 AM) RBC [4.20-5.40 Mil/mm3] 4.05 Mil/mm3 *LOW* (10/26/16 10:36 AM) Hgb [12.0-16.0 g/dL] 9.9 g/dL *LOW* (10/26/16 10:36 AM) Hct [37.0-47.0 %] 32.4 % *LOW* (10/26/16 10:36 AM) MCV [80.0-94.0 fL] 80.0 fL (10/26/16:36 AM) MCH [25.0-38.0 pg/cell] 24.4 pg/cell *LOW* (10/26/16:36 AM) MCHC [31.0-37.0 g/dL] 30.6 g/dL *LOW* (10/26/16:36 AM) RDW [1.0-48.0 fL] 58.9 fL *HI* (10/26/16:36 AM) Platelet [130-400 thou/mm3] 368 thou/mm3 (10/26/16:36 AM) Neutrophils % Auto [50.0-75.0 %] 65.3 % (10/26/16:36 AM) Immature Granulocyte Auto [0.1-2.0 %] 0.2 % (10/26/16:36 AM) Lymphocytes % Auto [15.0-41.0 %] 25.9 % (10/26/16:36 AM) Monocytes % Auto [2.0-10.0 %] 7.6 % (10/26/16:36 AM) Eosinophils % Auto [0.0-6.0 %] 0.8 % (10/26/16:36 AM) Basophil % Auto [0.0-1.0 %] 0.2 % (10/26/16:36 AM) Neutrophils Absolute [1.5-5.9 thou/mm3] 4.2 thou/mm3 (10/26/16:36 AM) Immature Gran Absolute [0.01-0.03 thou/mm3] 0.01 thou/mm3 (10/26/16 10:36 AM) Lymphocytes Absolute [1.5-4.0 thou/mm3] 1.6 thou/mm3 (10/26/16 10:36 AM) Monocytes Absolute [0.0-0.9 thou/mm3] 0.5 thou/mm3 (10/26/16 10:36 AM) Eosinophil Absolute [0.0-0.7 thou/mm3] 0.0 thou/mm3 (10/26/16 10:36 AM) Basophil Absolute [0.0-0.2 thou/mm3] 0.0 thou/mm3 (10/26/16 10:36 AM) Sed Rate [0-20 mm/hr] 20 mm/hr (10/26/16:36 AM) Sodium Lvl [135-144 mEq/L] 137 mEq/L (10/26/16:36 AM) Potassium Lvl [3.3-4.8 mEq/L] 5.0 mEq/L *HI* (10/26/16:36 AM) Chloride Lvl [98-107 mEq/L] 106 mEq/L (10/26/16:36 AM) Bicarbonate Lvl [22-30 mmol/L] 18 mmol/L *LOW* (10/26/16 AM) Anion Gap [10.0-20.0] 18.0 (10/26/16:36 AM) Glucose Lvl [70-108 mg/dL] 98 mg/dL (10/26/16:36 AM) BUN [7-21 mg/dL] 13 mg/dL (10/26/16:36 AM) Creatinine Lvl [0.50-1.20 mg/dL] 0.84 mg/dL (10/26/16:36 AM) BUN/Creat Ratio 15.5 *NA* (10/26/1636 AM) eGFR AA [>=60] >60 (10/26/16:36 AM) eGFR BLANCA [>=60] >60 (10/26/16:36 AM) Calcium Lvl [8.6-10.2 mg/dL] 9.0 mg/dL (10/26/16:36 AM) Total Protein [6.4-8.3 g/dL] 6.8 g/dL (10/26/16:36 AM) Albumin Lvl [3.5-5.2 g/dL] 4.2 g/dL (10/26/16:36 AM) Globulin 2.6 *NA* (10/26/16:36 AM) A/G Ratio [0.9-1.8] 1.6 (10/26/16:36 AM) Bilirubin Total [0.1-1.0 mg/dL] 0.2 mg/dL (10/26/16 10:36 AM) Alkaline Phosphatase [39-129 unit/L] 89 unit/L (10/26/16 10:36 AM) AST [0-39 unit/L] 18 unit/L (10/26/16 10:36 AM) ALT [0-40 unit/L] 14 unit/L (10/26/16 10:36 AM) Procalcitonin [0.00-0.09 ng/mL] 0.22 ng/mL *HI* (10/26/16 10:36 AM) Estimated Creatinine Clearance 83.10 mL/min 90.66 mL/min (10/26/16 11:10 AM) (10/26/16 10:20 AM) Urine Amphetamine Scrn Negative (10/26/16 11:08 AM) Urine Barbiturate Scrn Negative (10/26/16 11:08 AM) Urine Benzodiazepine Scrn Negative (10/26/16 11:08 AM) Urine Cannabinoid Met Scrn Negative (10/26/16 11:08 AM) Urine Cocaine Met Scrn Negative (10/26/16 11:08 AM) Urine Methadone Scrn Negative (10/26/16 11:08 AM) Urine Opiate Scrn Negative (10/26/16 11:08 AM) Urine Phencyclidine Scrn Negative (10/26/16 11:08 AM) Urine Propoxyphene Scrn Negative (10/26/16 11:08 AM) UA Color Yellow *NA* (10/26/16 11:08 AM) Urine Clarity Clear *NA* (10/26/16 11:08 AM) Specific [place] [1.000-1.060] 1.014 (10/26/16 11:08 AM) Urine pH [5-8] 7 (10/26/16 11:08 AM) Ketones Negative (10/26/16:08 AM) Bilirubin [Negative] Negative (10/26/16:08 AM) Urine Protein [Negative] Negative (10/26/16:08 AM) Glucose [Negative] Negative (10/26/16:08 AM) Urine HGB [Negative] Negative (10/26/16 11:08 AM) Urobilinogen <2.0 *NA* (10/26/16:08 AM) Nitrite [Negative] Negative (2/10/17 11:08 AM) Leuk Esterase [Negative] Negative (10/26/16 11:08 AM) UA Ascorbic Acid [Negative] Negative (10/26/16 11:08 AM) Urine WBC [0-5] 0-5 (10/26/16 11:08 AM) Urine RBC [0-2] 0-2 (10/26/16 11:08 AM) Squamous Epi [0-5] 0-5 (10/26/16 11:08 AM) Mucus Trace (10/26/16 11:08 AM) InfluA EIA Naso [Negative] Negative1 (10/26/16 12:04 PM) InfluB EIA Naso [Negative] Negative2 (10/26/16 12:04 PM) 1Result Comment: Presumptive Negative for Influenza "A" protein antigen. Infection due to Influenza "A" cannot be ruled out. Influenza "A" antigen in the sample may be below the detection limit of thetest.2Result Comment: Presumptive Negative for Influenza "B" protein antigen. Infection due to Influenza "B" cannot be ruled out. Influenza "B" antigen in the sample may be below the detection limit of thetest. Immunizations No data available for this section Procedures Procedure Date Related Diagnosis Body Site Arthroscopy Shoulder (Left)1 08/07/16 Laparotomy2 04/14/16 Fusion Cervical (SCIP)3 11/21/15 Cholecystectomy Gastric bypass H/O tubal ligation H/O: hysterectomy Laminectomy4 1auto-populated from documented surgical [id number] states for perforated [id number] from documented surgical [id number] fusion for L4 and L5 Social History No data available for this section Assessment and Plan No data available for this section
--- OUTSIDE RECORDS SUMMARY | 2016-12-31 21:13 | XMS REPORT | Summary of Care ---
:1975 Author Organization [facility] Address [address] [place] [phone]- Care Team Providers Name Role Phone Catherine Romero Primary Care Physician Encounter Date(s): 02/09/16 - 02/09/[address] [id number] Final: Pain in left shoulder Final: Unspecified rotator cuff tear or rupture of left shoulder, not specified as traumatic Discharge Disposition: Discharged to Home or Self Care Attending Physician: Jorge Luis Fajardo MD Admitting Physician: Jorge Luis Fajardo MD Vital Signs No data available for this section Problem List Condition Effective Dates Status Health Status Informant Left shoulder strain(Confirmed) Active Incontinence of urine(Confirmed) Active Allergies, Adverse Reactions, Alerts No Known Allergies Medications buPROPion 150 mg/12 hours (SR) oral tablet, extended release 1 tab(s), Oral, BID, # 60 tab(s), 0 Refill(s), Start Date: 11/07/15 9:50:00 MEDICAL RESEARCH SCIENTIST Start Date: 11/07/15 Status: OrderedCarafate 1 g oral tablet 1 tab(s), Oral, QID, # 120 tab(s), 0 Refill(s), Start Date: 11/18/15 15:16:00 MEDICAL RESEARCH SCIENTIST Start Date: 11/18/15 Status: OrderedCombivent Respimat CFC free 20 mcg-100 mcg/inh inhalation aerosol 1 puff(s), Inhale, QID, # 4 gm, 0 Refill(s), Start Date: 11/07/15 9:51:00 MEDICAL RESEARCH SCIENTIST Special Instructions: PT states not taking Start Date: 11/07/15 Stop Date: 11/18/15 Status: Discontinueddiazepam 5 mg oral tablet 2 tab(s), Oral, TID, PRN for anxiety, 0 Refill(s), Start Date: 11/18/15 15:13: 00 MEDICAL RESEARCH SCIENTIST Start Date: 11/18/15 Stop Date: 03/01/16 Status: Completedlansoprazole 30 mg oral delayed release capsule 1 cap(s), Oral, Daily, 0 Refill(s), Start Date: 11/07/15 9:49:00 MEDICAL RESEARCH SCIENTIST Start Date: 11/07/15 Status: OrderedNorco 5 mg-325 mg oral tablet 1 tab(s), Oral, TID, LAST RX/RDMD Loc, # 60 tab(s), 0 Refill(s), Start Date: 03/01 11:32:00 CDT Special Instructions: LAST RX/MD MOE Start Date: 03/01/16 Status: OrderedoxyCODONE-acetaminophen 5 mg-325 mg oral tablet See Instructions, 1 tab(s) Oral q4-6hr interval Max 7 per day, # 120 tab(s), 0 Refill(s), Start Date: 07/28/15 14:55:00 MEDICAL RESEARCH SCIENTIST, other reason (Rx) Special Instructions: 1 tab(s) [...] pain, 0 Refill(s), Start Date: 11/18/15 15:13:00 MEDICAL RESEARCH SCIENTIST Start Date: 11/18/15 Stop Date: 11/22/15 Status: DiscontinuedPercocet 10/325 oral tablet 1 tab(s), Oral, q4hr, PRN for pain, Max 6 per day, X 30 days, # 90 tab(s), 0 Refill(s), Start Date: 11/22/15 12:26:00 MEDICAL RESEARCH SCIENTIST, other reason (Rx) Special Instructions: Max 6 per day Start Date: 11/22/15 Stop Date: 12/22/15 Status: CompletedProAir HFA 90 mcg/inh inhalation aerosol 1 puff(s), Inhale, q4hr, PRN for wheezing, # 1 boxes, 0 Refill(s), Start Date: 11/07/15 9:51:00 MEDICAL RESEARCH SCIENTIST Start Date: 11/07/15 Status: OrderedSoma 350 mg oral tablet 1 tab(s), Oral, QID, 0 Refill(s), Start Date: 11/07/15 9:50:00 MEDICAL RESEARCH SCIENTIST Special Instructions: PT states not taking Start Date: 11/07/15 Stop Date: 11/18/15 Status: DiscontinuedValium 5 mg oral tablet See Instructions, 1 tab(s) Oral ONETIME 30-45 minutes prior to procedure, # 1 tab(s), 0 Refill(s), Start Date: 01/20/16 9:57:00 CDT, Pharmacy: [facility] [place], [place] Special Instructions: 1 tab(s) Oral ONETIME 30-45 minutes prior to procedure Start Date: 01/20/16 Stop Date: 03/01/16 Status: Completedzonisamide 25 mg oral capsule TAKE 1 CAP AT BEDTIME FOR 3 DAYS, THEN TWICE A DAY FOR DAYS 4-10, THEN 1 CAP 3 TIMES A DAY Special Instructions: TAKE 1 CAP AT BEDTIME FOR 3 DAYS, THEN TWICE A DAY FOR DAYS 4-10, THEN 1 CAP 3 TIMES A DAY Start Date: 11/18/15 Status: Ordered Results No data available for this section Immunizations No data available for this section Procedures Procedure Date Related Diagnosis Body Site Fusion Cervical (SCIP)1 11/21/15 Cholecystectomy Gastric bypass H/O tubal ligation H/O: hysterectomy Laminectomy2 1auto-populated from documented surgical [id number] fusion for L4 and L5 Social History No data available for this section Assessment and Plan No data available for this section
--- OUTSIDE RECORDS SUMMARY | 2016-12-31 21:13 | XMS REPORT | Summary of Care ---
:1975 Author Organization [facility] Address [address] [place] [address] Care Team Providers Name Role Phone Catherine Romero Primary Care Physician Encounter Date(s): 10/17/16 - 10/17/16 [facility] [address], [address] [place], [place] [address] Discharge Diagnosis: Neck pain Discharge Disposition: Discharged to Home or Self Care Attending Physician: Jorge Luis Fajardo MD Referring Physician: Unknown Physician Vital Signs Most recent to oldest [Reference Range]: 1 Peripheral Pulse Rate [60-100 bpm] 92 bpm (10/17/16 1:27 PM) Blood Pressure [90-130/60-90 mmHg] 132/85mmHg *HI* (10/17/16 1:27 PM) Mean Arterial Pressure, Cuff 101 mmHg (10/17/16 1:27 PM) Most recent to oldest [Reference Range]: 1 Height/Length Measured 162 cm (10/17/16 1:27 PM) Weight Dosing 64.10 kg1 (10/17/16 1:28 PM) Weight Measured 64.1 kg (10/17/16 1:27 PM) BSA Measured 1.68 m2 (10/17/16 1:27 PM) Body Mass Index Measured 24.42 kg/m2 (10/17/16 1:27 PM) 1Result Comment: This result was because the dosing weight was either not entered or it is>30 days old. This result is based off: Weight Measured October 17, 2016 13:27:00 HAT COPYIST by Radha Moran CMA Problem List Condition Effective Dates Status Health [...] tab(s), 0 Refill(s), Start Date: 11/07/15 9:50:00 HAT COPYIST Start Date: 11/07/15 Status: OrderedbuPROPion 300 mg/24 [...] tab(s), 0 Refill(s), Start Date: 11/18/15 15:16:00 HAT COPYIST Start Date: 11/18/15 Status: OrderedColace 100 mg oral capsule 1 cap(s), Oral, BID, PRN for constipation, # 20 cap(s), 0 Refill(s), Start Date : 06/13/16 14:06:00 CDT Start Date: 06/13/16 Stop Date: 07/03/16 Status: CompletedCombivent Respimat CFC free 20 mcg-100 mcg/inh inhalation aerosol 1 puff(s), Inhale, QID, # 4 gm, 0 Refill(s), Start Date: 11/07/15 9:51:00 HAT COPYIST Special Instructions: PT states not taking Start Date: 11/07/15 Stop Date: 11/18/15 Status: Discontinueddiazepam 5 mg oral tablet 2 tab(s), Oral, TID, PRN for anxiety, 0 Refill(s), Start Date: 11/18/15 15:13: 00 HAT COPYIST Start Date: 11/18/15 Stop Date: 03/01/16 Status: [...] 0 Refill(s), Start Date: 14:38:00 CDT, Pharmacy: [place], [place] Start Date: 07/05/16 Stop Date: 08/03/16 [...] Daily, 0 Refill(s), Start Date: 11/07/15 9:49:00 HAT COPYIST Start Date: 11/07/15 Status: Orderedmirtazapine 15 mg [...] tab(s), 0 Refill(s), Start Date: 07/28/15 14:55:00 HAT COPYIST, other reason (Rx) Special Instructions: 1 tab(s) [...] pain, 0 Refill(s), Start Date: 11/18/15 15:13:00 HAT COPYIST Start Date: 11/18/15 Stop Date: 11/22/15 Status: DiscontinuedPercocet 10/325 oral tablet 1 tab(s), Oral, q4hr, PRN for pain, Max 6 per day, X 30 days, # 90 tab(s), 0 Refill(s), Start Date: 11/22/15 12:26:00 HAT COPYIST, other reason (Rx) Special Instructions: Max 6 [...] tab(s), 0 Refill(s), Start Date: 08/07/16 9:33:00 HAT COPYIST Start Date: 08/07/16 Stop Date: 08/17/16 Status: CompletedProAir HFA 90 mcg/inh inhalation aerosol 1 puff(s), Inhale, q4hr, PRN for wheezing, # 1 boxes, 0 Refill(s), Start Date: 11/07/15 9:51:00 HAT COPYIST Start Date: 11/07/15 Status: Orderedpromethazine 25 mg oral tablet 1 tab(s), Oral, QID, PRN for nausea/vomiting, # 60 tab(s), 0 Refill(s), Start Date: 07/03/16 12:44:00 CDT Start Date: 07/03/16 Status: OrderedSoma 350 mg oral tablet 1 tab(s), Oral, QID, 0 Refill(s), Start Date: 11/07/15 9:50:00 HAT COPYIST Special Instructions: PT states not taking Start Date: 11/07/15 Stop Date: 11/18/15 Status: DiscontinuedValium 5 mg oral tablet See Instructions, 1 tab(s) Oral ONETIME 30-45 minutes prior to procedure, # 1 tab(s), 0 Refill(s), Start Date: 01/20/16 9:57:00 CDT, Pharmacy: [place], [place] Special Instructions: 1 tab(s) Oral ONETIME [...] H/O: hysterectomy Laminectomy4 1auto-populated from documented surgical [id number] states for perforated [id number] from documented surgical [id number] fusion for L4 and L5 Social History No data available for this section Assessment and Plan No data available for this section
--- OUTSIDE RECORDS SUMMARY | 2016-12-31 21:13 | XMS REPORT | Summary of Care ---
:1975 Author Organization [facility] Address [address] [place] [id number]- Care Team Providers Name Role Phone Catherine Romero Primary Care Physician Encounter Date(s): 02/09/16 - 02/09/[address] [address] Final: Pain in left shoulder Final: Unspecified [...] tab(s), 0 Refill(s), Start Date: 11/07/15 9:50:00 ANODISER Start Date: 11/07/15 Status: OrderedCarafate 1 g oral tablet 1 tab(s), Oral, QID, # 120 tab(s), 0 Refill(s), Start Date: 11/18/15 15:16:00 ANODISER Start Date: 11/18/15 Status: OrderedCombivent Respimat CFC free 20 mcg-100 mcg/inh inhalation aerosol 1 puff(s), Inhale, QID, # 4 gm, 0 Refill(s), Start Date: 11/07/15 9:51:00 ANODISER Special Instructions: PT states not taking Start Date: 11/07/15 Stop Date: 11/18/15 Status: Discontinueddiazepam 5 mg oral tablet 2 tab(s), Oral, TID, PRN for anxiety, 0 Refill(s), Start Date: 11/18/15 15:13: 00 ANODISER Start Date: 11/18/15 Stop Date: 03/01/16 Status: Completedlansoprazole 30 mg oral delayed release capsule 1 cap(s), Oral, Daily, 0 Refill(s), Start Date: 11/07/15 9:49:00 ANODISER Start Date: 11/07/15 Status: OrderedNorco 5 mg-325 mg oral tablet 1 tab(s), Oral, TID, LAST RX/MD MOE, # 60 tab(s), 0 Refill(s), Start Date: 03/01 11:32:00 CDT Special Instructions: LAST RX/MD MOE Start Date: 03/01/16 Status: OrderedoxyCODONE-acetaminophen 5 mg-325 mg oral tablet See Instructions, 1 tab(s) Oral q4-6hr interval Max 7 per day, # 120 tab(s), 0 Refill(s), Start Date: 07/28/15 14:55:00 ANODISER, other reason (Rx) Special Instructions: 1 tab(s) [...] pain, 0 Refill(s), Start Date: 11/18/15 15:13:00 ANODISER Start Date: 11/18/15 Stop Date: 11/22/15 Status: DiscontinuedPercocet 10/325 oral tablet 1 tab(s), Oral, q4hr, PRN for pain, Max 6 per day, X 30 days, # 90 tab(s), 0 Refill(s), Start Date: 11/22/15 12:26:00 ANODISER, other reason (Rx) Special Instructions: Max 6 per day Start Date: 11/22/15 Stop Date: 12/22/15 Status: CompletedProAir HFA 90 mcg/inh inhalation aerosol 1 puff(s), Inhale, q4hr, PRN for wheezing, # 1 boxes, 0 Refill(s), Start Date: 11/07/15 9:51:00 ANODISER Start Date: 11/07/15 Status: OrderedSoma 350 mg oral tablet 1 tab(s), Oral, QID, 0 Refill(s), Start Date: 11/07/15 9:50:00 ANODISER Special Instructions: PT states not taking Start Date: 11/07/15 Stop Date: 11/18/15 Status: DiscontinuedValium 5 mg oral tablet See Instructions, 1 tab(s) Oral ONETIME 30-45 minutes prior to procedure, # 1 tab(s), 0 Refill(s), Start Date: 01/20/16 9:57:00 CDT, Pharmacy: [facility] [place], [place] Special Instructions: 1 tab(s) Oral ONETIME [...] H/O: hysterectomy Laminectomy2 1auto-populated from documented surgical [id number] fusion for L4 and L5 Social History No data available for this section Assessment and Plan No data available for this section
[2016-12-31] MEDS ORDERED: NORMAL SALINE 1,000 ML IV ONE (21:30)
--- NOTE | 2016-12-31 21:30 | ERNOTE ---
Abdominal HPI - Narrative Date of Service: 12/31/16 - General Chief Complaint: Constipation Time Seen by Provider: 12/31/16 21:03 Source: patient Exam Limitations: no limitations - Immun/Allergies/Home Medications Immunizatons: IMMUNIZATION HX Immunizations Up to Date Yes History of Influenza Vaccine Yes Hx Pneumococcal Vaccination No Allergies/Adverse Reactions: Allergies No Known Drug Allergies Allergy (Verified 12/31/16 20:30) Home Medications: HOME MEDICATIONS Lansoprazole [Prevacid] 30 mg PO DAILY 08/17/12 [Last Taken 01/29/16] Cyanocobalamin (Vitamin B-12) [Vitamin B-12] 1 tab PO DAILY 10/04/12 [Last Taken 01/29/16] Albuterol Sulfate [Albuterol Sulfate Hfa] 2 puff IH Q4H PRN 09/24/13 [Last Taken Unknown] Bupropion HCl [Wellbutrin Xl] 150 mg PO HS 10/11/13 [Last Taken 01/28/16 21:00] Albuterol Sulfate 2.5 mg IH Q4H PRN #25 vial.neb 11/28/15 [Last Taken Unknown] Alprazolam [Xanax Xr] 3 mg PO DAILY 01/29/16 [Last Taken 01/29/16] Bupropion HCl [Wellbutrin] 300 mg PO DAILY 01/29/16 [Last Taken 01/29/16] Zonisamide 50 mg PO TID 01/29/16 [Last Taken 01/29/16 17:00] traZODone HCL [Oleptro ER] 150 mg PO HS 01/29/16 [Last Taken 01/28/16 21:00] hydrOXYzine PAMOATE [Vistaril] 100 mg PO BID 01/30/16 [Last Taken 01/29/16] Bisacodyl [Laxative] 5 mg PO Q48H PRN #60 tablet 03/11/16 [Last Taken Unknown] Polyethylene Glycol 3350 [Miralax] 17 gm PO BID #1 bottle 03/11/16 [Last Taken Unknown] Psyllium Husk (with Sugar) [Metamucil] 1 each PO BID #1 bottle 03/11/16 [Last Taken Unknown] Promethazine HCl [Phenergan] 25 mg PO QID PRN #30 tab 05/29/16 [Last Taken Unknown] Fluconazole [Diflucan] 150 mg PO DAILY #1 tablet 07/21/16 [Last Taken Unknown] Vicodin 5-300 mg Tablet 10/19/16 [Last Taken Unknown] Divalproex Sodium [Depakote ER] 500 mg PO DAILY #30 tab 11/04/16 [Last Taken Unknown] HYDROcodone/ACETAMINOPHEN [[place] 5-325] 2 tab PO QID PRN #32 tab 11/04/16 [Last Taken Unknown] - History of Present Illness Narrative: Pt. comes in with c/o diffuse abdominal pain for five days. Pt. denies any SOB , CP, NVD, but pt. does state that her LBM was two weeks ago. Pt. 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 Review of Systems - Review of Systems Constitutional: Present: no symptoms reported. Absent: recent illness, fever, chills, weakness, fatigue, malaise EYE: Present: no symptoms reported ENT: Present: no symptoms reported Respiratory: Present: no symptoms reported. Absent: shortness of breath, cough , wheezing Cardiology: Present: no symptoms reported. Absent: chest pain, palpitations, edema Gastrointestinal/Abdominal: Present: abdominal pain. Absent: nausea, vomiting, diarrhea Genitourinary: Present: no symptoms reported Musculoskeletal: Present: no symptoms reported. Absent: back pain, joint pain Skin: Present: no symptoms reported Neurological: Present: no symptoms reported. Absent: headache, dizziness/light- headedness, numbness, tingling All Other Systems: All systems neg except as marked - Patient's Past Medical History Patient History - Medical: ADHD, Anxiety, Chronic Pain, Diabetes Type 2, Depression, Migraines Patient History - Cardiac/Respiratory: No pertinent hx Patient History - Cancer: No Hx of Cancer Patient History - Surgical Procedures: Back Surgery, Cholecystectomy, Colon Resection, Colonoscopy, EGD, Gastric Bypass, Hysterectomy, Tubal Ligation, Other Patient History - Other: None - Family History Mother Family History - Medical: History Unknown faher Family History - Medical: History Unknown, Other Family History - Cardiac/Respiratory: Coronary Heart Disease - Social History Living Situations: significant other Abuse History: No History of abuse Psych History: No pertinent hx Does anyone smoke in the home?: Yes Smoking Status: Current every day smoker Patient requests Smoking Cessation Consult: No Initiate information on Smoking Cessation: No Alcohol Use: none Drug Use: none - Immunizations Immunizations Up to Date: Yes Hx Pneumococcal Vaccination: No History of Influenza Vaccine: Yes Physical Exam - Physical Exam General Appearance: Present: wd/wn, alert, no apparent distress Eye Exam: Normal inspection: bilateral, PERRL: bilateral, EOMI: bilateral Ears, Nose, Throat: Present: normal ENT inspection, normal pharynx Neck: Present: normal inspection, nontender. Absent: lymphadenopathy (R), lymphadenopathy (L) Respiratory: Present: no respiratory distress, normal breath sounds, no accessory muscle use, chest nontender, lungs clear Cardiovascular/Chest: Present: regular rate, rhythm, no murmur, normal peripheral pulses Gastrointestinal/Abdominal: Present: no organomegaly, tenderness - throughout, distended. Absent: rebound, McBurney sign, Obturator sign, Gray sign, Psoas sign, hepatomegaly Back Exam: Present: normal inspection, normal range of motion, no CVA tenderness , no vertebral tenderness Extremity Exam: Present: normal inspection, non-tender, normal range of motion, no edema Neurological Exam: Present: alert, oriented, normal mood/affect, no motor/ sensory deficits. Absent: bulk plant manager II-XII nml as tested, normal cerebellar test Skin Exam: Present: normal color, warm/dry. Absent: pallor, skin rash ED Progress - Date and Time Seen: Date and Time: 12/31/16 22:[address] Strickland and as pt. is distended and with air fluid levels recommend that pt. get CT scan as benefit outweighs the risk. 12/31/16 22:48 Pt. is refusing to stay as she does not want her care transferred to physician. Will call [facility] and tell them what she has had occur this night and send them images. 12/31/16 23:26 Called [facility] and gave them a heads up on the pt. and obtained a KARLI for pt. to send records to them. - Results and Orders Patient's Lab Results:: I have reviewed the patient's lab results. - Vital Signs Patient's Vital Signs:: I have reviewed the patient's vital signs. Vital Signs: Vital Signs 12/31/16 20:26 Temperature 37 C Pulse Rate 93 Respiratory 20 Rate Blood Pressure 121/78 O2 Sat by Pulse 98 Oximetry - X-Ray X-Ray #1 X-Ray: abdomen Interpretation: Interp. by me X-ray Comments: scattered air fluid levels, thickening of the bowel wall. small amount of retained stool within the realm of normal. - Progress/Reassessment Chief Complaint: Constipation Departure - Departure Clinical Impression: Abdominal pain Qualifiers: Abdominal location: generalized Qualified Code(s): R10.84 - Generalized abdominal pain Disposition: Against medical advice Condition: Undetermined Referrals: Robin Hathaway MD [Primary Care Provider] -
[2016-12-31 21:38] LABS: Hematocrit 29.6 % (37.0-47.0); Hemoglobin 8.9 gm/dL (12.5-16.0); Mean Cell Volume 76.9 fl (78-100); Mean Corpuscular Hemoglobin 23.1 pg (27-31); Mean Corpuscular Hgb Conc 30.1 g/dl (32-36); Mean Platelet Volume 8.9 fl (6.0-9.5); Neutrophil # 5.8 K/mm3 (1.3-6.0); Neutrophil % 66.1 % (42-75.0); Platelet Count 262 K/mm3 (150-450); Red Blood Count 3.85 M/mm3 (4.2-5.4); Red Cell Distribution Width 16.1 % (11.5-14.0); White Blood Count 8.7 K/mm3 (4.0-10.5)
[2016-12-31 21:41] LABS: Albumin * 3.4 gm/dl (3.4-5.0); BUN/Creatinine Ratio 19.2 (9.0-21.6); Bilirubin, Total 0.1 mg/dL (0.0-1.1); Ca. Corrected For Albumin 8.5 mg/dL (8.4-10.2); Calcium * 8.3 mg/dL (7.9-10.9); Carbon Dioxide 23.7 mmol/L (24-32.6); Potassium 4.7 mmol/L (3.4-4.6)
[2016-12-31] MEDS ORDERED: NALBUPHINE HCL 20 MG/ML AMPUL ONE (22:19)
[2016-12-31] MEDS ORDERED: METOCLOPRAMIDE HCL 5 MG/ML VIAL ONE (22:19)
[2016-12-31] MEDS ORDERED: DIATRIZOATE MEGLU/DIATRIZO SOD 30 ML BTL ONE (22:20)
[2016-12-31 22:39] LABS: Urine Bilirubin Negative (NEGATIVE); Urine Blood Negative /ul (NEGATIVE); Urine Ketone Negative (NEGATIVE); Urine Nitrite Negative (NEGATIVE); Urine Protein Negative (NEGATIVE); Urine Specific Gravity 1.025 SP.GR. (1.005-1.010); Urine Urobilinogen Normal (NORMAL)
[2016-12-31 22:40] LABS: Urine Amorphous Sediment TRACE (NONE-FEW); Urine Appearance Slightly Cloudy; Urine Bacteria 3+; Urine Color Yellow; Urine RBC None Seen /hpf (0-5); Urine WBC None Seen /hpf (0-5)
[2016-12-31] MEDS ORDERED: DIATRIZOATE MEGLU/DIATRIZO SOD 30 ML BTL PO ONE (22:40)
[2016-12-31] MEDS ORDERED: HYDROmorphone HCL 1 MG/ML DISP.SYRIN IV ONE (22:47)
[2016-12-31 22:49] LABS: Cocaine Ur Negative (NEGATIVE); Urine Barbiturate Negative (NEGATIVE); Urine PCP Negative (NEGATIVE); Urine THC Negative (NEGATIVE)
[2016-12-31 22:50] LABS: Urine Benzodiazepines Positive (NEGATIVE); Urine Opiates Positive (NEGATIVE)
[2016-12-31] MEDS ORDERED: HYDROmorphone HCL 1 MG/ML DISP.SYRIN ONE (23:07)
== END 2016-12-31 23:29 | disposition left against medical advice (07) ==
LOC: ER 20:08
DX: R10.84 Generalized abdominal pain (principal); Z72.0 Tobacco use; Z53.29 Procedure and treatment not carried out because of patient's decision for other reasons

== ENCOUNTER 2017-01-10 11:44 | Emergency (ER) | payer MEDICARE, OTHER ==
[2017-01-10] MEDS ORDERED: ONDANSETRON HCL/PF 2 MG/ML VIAL IV ONE (12:13)
--- OUTSIDE RECORDS SUMMARY | 2017-01-10 12:18 | XMS REPORT | Continuity of Care Document ---
:1975 Author Organization [facility] [place] [address] Care Team Providers Name Role Phone Bernardo Resendez V Primary Care Provider [phone] Source Comments This disclosure is being made pursuant to the abeo program and maynot contain all information available regarding this patient.[employer] [employer] [facility] [employer] Active Allergies and Adverse Reactions Allergen Noted [...] tablet 1 12/17/2016 Active (WELLBUTRIN XL) 300 by mouth MG 24 hr tablet daily. Take with 150 mg to equal 450 mg daily buPROPion XL Take 1 tablet 1 12/17/2016 Active (WELLBUTRIN XL) 150 by mouth MG 24 hr tablet daily. Take with 300 mg tab to equal 450 mg oral daily. carisoprodol (SOMA) Take 1 tablet 0 12/17/2016 Active 350 MG tablet by mouth 4 (four) times daily. hydrOXYzine Take 1 capsule 1 12/17/2016 Active (VISTARIL) 100 MG by mouth 3 capsule (three) times daily as needed. For anxiety sucralfate (CARAFATE) Take 1 tablet 3 12/17/2016 Active 1 g tablet by mouth 4 (four) times daily. zonisamide (ZONEGRAN) Take 2 1 12/17/2016 Active 100 MG capsule capsules by mouth 2 (two) times daily. lisinopril Take 5 mg by 2 12/17/2016 Active (PRINIVIL,ZESTRIL) 5 mouth daily. MG tablet oxyCODONE-acetaminoph Take 1 tablet 90 tablet 0 01/04/2017 Active en (PERCOCET) 7.5-325 by mouth every 7 MG per tablet 8 (eight) hours as needed for Pain. cyclobenzaprine Take 1 tablet 2 11/10/2016 Discontinued (FLEXERIL) 10 MG by mouth 3 7 tablet (three) times daily. HYDROcodone-acetamino Take 1 tablet 0 12/17/2016 Discontinued phen (NORCO) 5-325 MG by mouth every 7 per tablet 8 (eight) hours as needed. divalproex ER Take 500 mg by 0 11/04/2016 Discontinued (DEPAKOTE EXTENDED mouth daily. 7 RELEASE) 500 MG 24 hr tablet magnesium citrate Take 296 mLs 296 mL 0 12/31/2016 solution by mouth once. 7 azithromycin Take 1 tablet 6 tablet 0 01/04/2017 (ZITHROMAX) 250 MG by mouth 7 tablet daily. Take double dose on Day #1. oxyCODONE-acetaminoph Take 1 tablet 20 tablet 0 01/04/2017 Discontinued en (PERCOCET) 7.5-325 by mouth every 7 MG per tablet 4 (four) hours as needed for Pain. oxyCODONE-acetaminoph Take 1 tablet 90 tablet 0 01/04/2017 Discontinued en (PERCOCET) 7.5-325 by mouth every 7 MG per tablet 8 (eight) hours as needed for Pain. Active Problems Problem Noted Date GERD (gastroesophageal reflux disease) 12/23/2016 Essential hypertension, benign 12/23/2016 Post traumatic stress disorder (PTSD) 12/23/2016 Generalized anxiety disorder 12/23/2016 Bipolar disorder (HCC) 12/23/2016 Most Recent Encounters Date Type Specialty Providers Description 01/04/2017 Office Visit Family Medicine Bernardo Resendez DO Generalized abdominal pain (Primary Dx); Constipation, unspecified constipation type; Acute non-recurrent maxillary sinusitis; Chronic low back pain without sciatica, unspecified back pain laterality 12/31/2016 Office Visit Family Medicine Manarang, Don V, DO Weight gain ( Primary Dx); Chronic low back pain without sciatica, unspecified back pain laterality; Constipation, unspecified constipation type 12/26/2016 Orders Only Provider, Not In System 12/23/2016 Abstract Family Medicine Krystal Quiroga, RN 12/17/2016 Scanned Document Family Medicine Provider, Not In System Social History Tobacco Use Types Packs/Day Years Used Date Current Every Day Smoker 0.5 Alcohol Use Drinks/Week oz/Week Comments No Last Filed Vital Signs Vital Sign Reading Time Taken Blood Pressure 122/88 01/04/2017 2:13 PM CDT Pulse 91 01/04/2017 2:13 PM CDT Temperature 36.8 C (98.2 F) 01/04/2017 2:13 PM CDT Respiratory Rate 17 01/04/2017 2:13 PM CDT Height 1.6 m (5' 3") 01/04/2017 2:13 PM CDT Weight 81.375 kg (179 lb 6.4 oz) 12/31/2016 9:24 AM CDT Body Mass Index 31.79 12/31/2016 9:24 AM CDT Oxygen Saturation 97% 01/04/2017 2:13 PM CDT Plan of Care Health Maintenance Due [...] K/L Specimen BLOOD Narrative See scanned result 12-19-16
--- OUTSIDE RECORDS SUMMARY | 2017-01-10 12:19 | XMS REPORT | Continuity of Care Document ---
:1975 Author Organization [facility] ([facility]) Address [address] [place] [address] Phone [phone] Care Team Providers Name Role Phone NenaRupinderCresencio Robin Primary Care Provider [phone] Source Comments This disclosure is being made pursuant to the Care Everywhere program, applicable federal and state laws, and may not contain all informaitonavailable regarding this patient.[facility] ([facility]) Active Allergies and Adverse Reactions Allergen [...] Taken Blood Pressure 126/82 07/27/2016 9:58 AM MANAGER PORT Pulse 82 07/27/2016 9:58 AM MANAGER PORT Temperature 36.5 C (97.7 F) 07/27/2016 9:58 AM MANAGER PORT Respiratory Rate 16 07/17/2016 3:28 PM CDT Height 1.549 m (5' 1") 07/17/2016 4:47 AM CDT Weight 64.05 kg (141 lb 3.3 oz) 07/27/2016 9:58 AM MANAGER PORT Body Mass Index 26.69 07/27/2016 9:58 AM MANAGER PORT Oxygen Saturation 98% 07/17/2016 11:58 AM CDT [...]
[2017-01-10] MEDS ORDERED: ONDANSETRON HCL/PF 2 MG/ML VIAL ONE (12:26)
[2017-01-10 13:10] LABS: Urine Bilirubin Negative (NEGATIVE); Urine Blood Negative /ul (NEGATIVE); Urine Ketone Negative (NEGATIVE); Urine Nitrite Negative (NEGATIVE); Urine Protein Negative (NEGATIVE); Urine Specific Gravity 1.025 SP.GR. (1.005-1.010); Urine Urobilinogen Normal (NORMAL)
[2017-01-10 13:15] LABS: Hematocrit 32.1 % (37.0-47.0); Hemoglobin 9.4 gm/dL (12.5-16.0); Mean Cell Volume 77.7 fl (78-100); Mean Corpuscular Hemoglobin 22.8 pg (27-31); Mean Corpuscular Hgb Conc 29.3 g/dl (32-36); Mean Platelet Volume 10.8 fl (6.0-9.5); Neutrophil # 4.5 K/mm3 (1.3-6.0); Neutrophil % 57.1 % (42-75.0); Platelet Count 290 K/mm3 (150-450); Red Blood Count 4.13 M/mm3 (4.2-5.4); Red Cell Distribution Width 16.2 % (11.5-14.0); White Blood Count 7.8 K/mm3 (4.0-10.5)
[2017-01-10 13:23] LABS: Urine Appearance Clear; Urine Bacteria 1+; Urine Color Yellow; Urine RBC None Seen /hpf (0-5); Urine WBC TRACE /hpf (0-5)
[2017-01-10 13:30] LABS: Cocaine Ur Negative (NEGATIVE); Urine Barbiturate Negative (NEGATIVE); Urine Benzodiazepines Negative (NEGATIVE); Urine PCP Negative (NEGATIVE); Urine THC Negative (NEGATIVE)
[2017-01-10 13:30] LABS: Albumin * 3.7 gm/dl (3.4-5.0); BUN/Creatinine Ratio 14.1 (9.0-21.6); Bilirubin, Total 0.3 mg/dL (0.0-1.1); Ca. Corrected For Albumin 8.9 mg/dL (8.4-10.2); Potassium 4.6 mmol/L (3.4-4.6); Total Protein 7.3 gm/dL (6.2-8.2)
[2017-01-10 13:31] LABS: Urine Opiates Positive (NEGATIVE)
--- NOTE | 2017-01-10 13:33 | ERNOTE ---
Abdominal HPI - Narrative Date of Service: 01/10/17 - General Chief Complaint: Constipation Time Seen by Provider: 01/10/17 12:04 Source: patient Exam Limitations: no limitations - Immun/Allergies/Home Medications Immunizatons: IMMUNIZATION HX Immunizations Up to Date Yes History of Influenza Vaccine Yes Hx Pneumococcal Vaccination No Allergies/Adverse Reactions: Allergies No Known Drug Allergies Allergy (Verified 01/10/17 11:49) Home Medications: HOME MEDICATIONS Lansoprazole [Prevacid] 30 mg PO DAILY 08/17/12 [Last Taken 01/29/16] Albuterol Sulfate [Albuterol Sulfate Hfa] 2 puff IH Q4H PRN 09/24/13 [Last Taken Unknown] Bupropion HCl [Wellbutrin Xl] 150 mg PO HS 10/11/13 [Last Taken 01/28/16 21:00] Alprazolam [Xanax Xr] 2 mg PO BID 01/29/16 [Last Taken 01/29/16] Bupropion HCl [Wellbutrin] 300 mg PO DAILY 01/29/16 [Last Taken 01/29/16] Zonisamide 50 mg PO TID 01/29/16 [Last Taken 01/29/16 17:00] hydrOXYzine PAMOATE [Vistaril] 100 mg PO BID 01/30/16 [Last Taken 01/29/16] Bisacodyl [Laxative] 5 mg PO Q48H PRN #60 tablet 03/11/16 [Last Taken Unknown] Polyethylene Glycol 3350 [Miralax] 17 gm PO BID #1 bottle 03/11/16 [Last Taken Unknown] Psyllium Husk (with Sugar) [Metamucil] 1 each PO BID #1 bottle 03/11/16 [Last Taken Unknown] HYDROcodone/ACETAMINOPHEN [Devens 7.5-325 Tablet] 1 each PO TID 01/10/17 [Last Taken Unknown] Lisinopril [Zestril] 2.5 mg PO DAILY 01/10/17 [Last Taken Unknown] - History of Present Illness Narrative: 41-year-old female presents emergency room for abdominal pain on her right abdomen radiating to her back. She states she has been unable to have a bowel movement in 12 days. She's unable to swallow any liquids at this time. Patient has extensive history of abdominal surgeries and most recently seen here last week for constipation. Patient states she has been taking over-the- counter medications for constipation without any results. Date (Duration): 01/10/17 Timing: constant, getting worse Quality: mild Activities at Onset: none Modifying Factors - (Improves): Present: defecating Modifying Factors - (Worsens): Present: movement Associated Symptoms: Present: nausea, swelling/mass in abdomen Prior Abdominal Problems: Present: other - abdominal surgery Prior Treatment: Present: recently seen - last week for constipation. Review of Systems - Review of Systems Constitutional: Present: See HPI EYE: Present: no symptoms reported ENT: Present: no symptoms reported Respiratory: Present: no symptoms reported Cardiology: Present: no symptoms reported Gastrointestinal/Abdominal: Present: See HPI Genitourinary: Present: See HPI Musculoskeletal: Present: See HPI Skin: Present: no symptoms reported Neurological: Present: no symptoms reported Endocrine: Present: no symptoms reported Hematologic/Lymphatic: Present: no symptoms reported Psych: Present: no symptoms reported - Patient's Past Medical History Patient History - Medical: ADHD, Anxiety, Chronic Pain, Diabetes Type 2, Depression, Migraines Patient History - Cardiac/Respiratory: No pertinent hx Patient History - Cancer: No Hx of Cancer Patient History - Surgical Procedures: Back Surgery, Cholecystectomy, Colon Resection, Colonoscopy, EGD, Gastric Bypass, Hysterectomy, Tubal Ligation, Other Patient History - Other: None - Family History Mother Family History - Medical: History Unknown faher Family History - Medical: History Unknown, Other Family History - Cardiac/Respiratory: Coronary Heart Disease - Social History Living Situations: home Abuse History: No History of abuse Psych History: No pertinent hx Does anyone smoke in the home?: Yes Alcohol Use: none Drug Use: none - Immunizations Immunizations Up to Date: Yes Hx Pneumococcal Vaccination: No History of Influenza Vaccine: Yes Physical Exam - Physical Exam Narrative: BS hypoactive right side of her abdomen is tender to palpation. Patient states that she has swelling that goes around behind her back. there is tissue there but She looks equal to me at this time. Tissue is not firm and does not appear fluid filled. General Appearance: Present: wd/wn, alert, no apparent distress Ears, Nose, Throat: Present: normal ENT inspection Neck: Present: normal inspection, nontender Respiratory: Present: no respiratory distress, normal breath sounds, no accessory muscle use, lungs clear Cardiovascular/Chest: Present: regular rate, rhythm, no murmur, normal peripheral pulses Gastrointestinal/Abdominal: Present: tenderness, abnormal bowel sounds, guarding , other - scar healed Back Exam: Present: no vertebral tenderness Extremity Exam: Present: normal inspection, normal range of motion, no edema Neurological Exam: Present: alert, oriented, normal mood/affect, no motor/ sensory deficits Skin Exam: Present: normal color, warm/dry, cool/dry Lymphatic Exam: Present: no adenopathy ED Progress - Results and Orders Patient's Lab Results:: I have reviewed the patient's lab results. Results and Orders: no acute process at this time. - Vital Signs Vital Signs: Vital Signs 01/10/17 11:46 Temperature 36.8 C Pulse Rate 81 Respiratory 12 Rate Blood Pressure 118/75 O2 Sat by Pulse 99 Oximetry - CT/Ultrasound CT/Ultrasound Narrative: Comparison: Prior exams, most recent are radiographs dated December 31, 2016. CT Abdomen/Pelvis W/ Contrast Findings: Lung bases: Images reveal bibasilar dependent atelectasis. ABDOMEN/PELVIS: Liver: There are unchanged subcentimeter subcapsular hypodensities in the right superior hepatic lobe that are less conspicuous on the delayed phase image, and likely represent hemangiomas. There is focal fatty infiltration at the anterior aspect of the medial left hepatic lobe. Spleen: Unremarkable. Pancreas: Unremarkable. Gallbladder: Changes from cholecystectomy. The common bile duct is normal in diameter at the level the fer hepatis measuring 9 mm. There is suggestion of abrupt tapering of the common bile duct in the region of the pancreatic head. Mild prominence of the intrahepatic bile ducts. Adrenal glands: Unremarkable. Kidneys: There is a left greater than right extrarenal pelvis. No evidence of a renal mass or cyst. No evidence of obstructive uropathy. Normal course and caliber of the ureters. No filling defect within the opacified portions of the ureters. Bowel: Limited evaluation of the unopacified hollow viscera. 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 There is air and fluid within the excluded stomach. The pancreaticobiliary limb also demonstrates air and fluid. The pancreaticobiliary limb is normal in caliber. The Homer limb is normal in caliber. There is a small bowel anastomosis in the left lateral abdomen. Patulous appearance at the level the anastomosis. No discrete evidence of a small bowel obstruction. Normal appendix. Moderate stool retention. There is focal bowel wall thickening at the level the hepatic flexure and proximal transverse colon. There is bowel wall thickening involving the mid descending colon. Redundant sigmoid colon. Pelvic structures: Changes from hysterectomy. The pelvic structures are otherwise unremarkable.. Vascular structures: Atherosclerotic changes are present throughout the normal caliber aorta and branching vessels. Lymphadenopathy: No significant lymphadenopathy. There is no free fluid or fluid collections. No pneumoperitoneum. No hemoperitoneum. Osseous structures: Degenerative changes are present. No acute osseous findings. For discussion purposes, the last lumbar type vertebral body is referred to as L5. There is pseudoarticulation of the left L5 transverse process with the sacrum, which may be a source of chronic low back pain. There are changes from L4-L5 anterior fusion with a anterior side plate and screw fixation. Additionally, there is a disc spacer at the L4-L5 level. Abdominal wall: Surgical changes are noted about the ventral abdominal wall. There is diastases of the abdominal rectus musculature. IMPRESSION: Exam is limited by the lack of oral contrast. No evidence of bowel obstruction. 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 There is abnormal air and fluid within the excluded stomach and pancreaticobiliary limb. Findings could represent sequela of a gastrogastric fistula versus reflux of enteric contents up the pancreaticobiliary limb. Mild prominence of the common bile duct likely represent expected post surgical change. However, there is prominent tapering of the common bile duct at the level of the pancreatic head; of uncertain clinical significance. If the patient's labs are abnormal, then follow-up with MRCP could be considered. Mild colonic bowel wall thickening could represent artifact related to peristalsis or sequela of a infectious or inflammatory colitis. Stool retention. Additional findings and comments are as above. Electronically signed by Paul Gutierrez D.O.. - Progress/Reassessment Chief Complaint: Constipation Progress:: Unchanged Progress Note-Subjective: 01/10/17 16:05 patient is signing out AMA and going to [facility] via personal car. Plan - Plan Plan: Dr Recinos aware of patient being in ER with Abd Pain. Stated she has an extensive history and suggested tx if consult needed. After reviewing CT, This provided attempted to discuss transfer to [place]. Patient became uncooperative and refused to discuss transfer with me and requested to speak with [facility] student advisor. Patient refused [facility] Refused transfer. [facility] accepted her. patient is signing out AMA and will be taken by personal car. Departure - Departure Clinical Impression: Gastric fistula Constipation Qualifiers: Constipation type: unspecified constipation type Qualified Code(s): K59.00 - Constipation, unspecified Disposition: [facility] Condition: Stable Additional Instructions: Please go Directly to the [facility] Emergency room. they are expecting you there. I recommend that you be transferred by ambulance. Referrals: Bernardo Resendez DO [Primary Care Provider] -
[2017-01-10] MEDS ORDERED: NORMAL SALINE 1,000 ML IV ONE (13:35)
[2017-01-10 13:40] LABS: Carbon Dioxide 23.9 mmol/L (24-32.6)
[2017-01-10 13:41] LABS: Anion Gap 14.7 mmol/L (6.8-13.8)
[2017-01-10 16:17] VITALS: BP 100/54
== END 2017-01-10 16:18 | disposition short-term general hospital (02) ==
LOC: ER 11:44
DX: K31.6 Fistula of stomach and duodenum (principal); K59.00 Constipation, unspecified; Z57.31 Occupational exposure to environmental tobacco smoke; F41.8 Other specified anxiety disorders; G89.29 Other chronic pain; E11.9 Type 2 diabetes mellitus without complications; Z53.29 Procedure and treatment not carried out because of patient's decision for other reasons

== ENCOUNTER 2017-01-17 09:34 | Emergency (ER) | payer MEDICARE, OTHER ==
--- OUTSIDE RECORDS SUMMARY | 2017-01-17 09:59 | XMS REPORT | Continuity of Care Document ---
:1975 Author Organization [employer] [place] [address] Care Team Providers Name Role Phone Bernardo Resendez V Primary Care Provider [phone] Source Comments This disclosure is being made pursuant to the [employer] program and may contain all information available regarding this patient.[facility] Active Allergies and Adverse Reactions Allergen Noted [...] (four) to 6 (six) hours as needed. buPROPion XL Take 1 tablet 1 12/17/2016 Active (WELLBUTRIN XL) 300 by mouth MG 24 hr tablet daily. Take with 150 mg to equal 450 mg daily buPROPion XL Take 1 tablet 1 12/17/2016 Active (WELLBUTRIN XL) 150 by mouth MG 24 hr tablet daily. Take with 300 mg tab to equal 450 mg oral daily. hydrOXYzine Take 1 1 12/17/2016 Active (VISTARIL) 100 MG capsule by capsule mouth 3 (three) times daily as needed. For anxiety sucralfate (CARAFATE) Take 1 tablet 3 12/17/2016 Active 1 g tablet by mouth 4 (four) times daily. zonisamide (ZONEGRAN) Take 2 1 12/17/2016 Active 100 MG capsule capsules by mouth 2 (two) times daily. oxyCODONE-acetaminoph Take 1 tablet 90 tablet 0 01/04/2017 Active en (PERCOCET) 7.5-325 by mouth 7 MG per tablet every 8 (eight) hours as needed for Pain. lisinopril Take 1 tablet 30 tablet 2 01/16/2017 Active (PRINIVIL,ZESTRIL) 5 by mouth MG tablet daily. alprazolam (XANAX) 2 Take 1 tablet 60 tablet 0 01/16/2017 Active MG tablet (2 mg total) by mouth 2 (two) times daily. And as needed carisoprodol (SOMA) Take 1 tablet 120 tablet 0 01/16/2017 Active 350 MG tablet (350 mg total) by mouth 4 (four) times daily. alprazolam (XANAX) 2 Take 1 tablet 0 12/17/2016 Discontinued MG tablet by mouth 2 7 (two) times daily. And as needed carisoprodol (SOMA) Take 1 tablet 0 12/17/2016 Discontinued 350 MG tablet by mouth 4 7 (four) times daily. cyclobenzaprine Take 1 tablet 2 11/10/2016 Discontinued (FLEXERIL) 10 MG by mouth 3 7 tablet (three) times daily. HYDROcodone-acetamino Take 1 tablet 0 12/17/2016 Discontinued phen (NORCO) 5-325 MG by mouth 7 per tablet every 8 (eight) hours as needed. lisinopril Take 5 mg by 2 12/17/2016 Discontinued (PRINIVIL,ZESTRIL) 5 mouth daily. 7 MG tablet divalproex ER Take 500 mg 0 11/04/2016 Discontinued (DEPAKOTE EXTENDED by mouth 7 RELEASE) 500 MG 24 hr daily. tablet magnesium citrate Take 296 mLs 296 mL 0 12/31/2016 solution by mouth 7 once. azithromycin Take 1 tablet 6 tablet 0 01/04/2017 (ZITHROMAX) 250 MG by mouth 7 tablet daily. Take double dose on Day #1. oxyCODONE-acetaminoph Take 1 tablet 20 tablet 0 01/04/2017 Discontinued en (PERCOCET) 7.5-325 by mouth 7 MG per tablet every 4 (four) hours as needed for Pain. oxyCODONE-acetaminoph Take 1 tablet 90 tablet 0 01/04/2017 Discontinued en (PERCOCET) 7.5-325 by mouth 7 MG per tablet every 8 (eight) hours as needed for Pain. Active Problems Problem Noted Date GERD (gastroesophageal reflux disease) 12/23/2016 Essential hypertension, benign 12/23/2016 Post traumatic stress disorder (PTSD) 12/23/2016 Generalized anxiety disorder 12/23/2016 Bipolar disorder (HCC) 12/23/2016 Most Recent Encounters Date Type Specialty Providers Description 01/16/2017 Refill Family Medicine Bisi Low RN 01/04/2017 Office Visit Family Medicine Bernardo Resendez V, DO Generalized abdominal pain (Primary Dx); Constipation, unspecified constipation type; Acute non-recurrent maxillary sinusitis; Chronic low back pain without sciatica, unspecified back pain laterality 12/31/2016 Office Visit Family Medicine Bernardo Resendez [...]
--- OUTSIDE RECORDS SUMMARY | 2017-01-17 10:00 | XMS REPORT | Continuity of Care Document ---
:1975 Author Organization [facility] ([facility]) Address [address] [place] [address] Phone [phone] Care Team Providers Name Role Phone Bernardo Resendez Primary Care Provider [phone] Source Comments This disclosure is being made pursuant to the Care Everywhere program, applicable federal and state laws, and may not contain all informaitonavailable regarding this patient.[facility] ([facility]) Active Allergies and Adverse Reactions Allergen Noted Date Severity Reactions Comments Morphine 02/25/2015 Pruritus Current Medications Prescription Sig. Disp. Refills Start Date End Date Status ALPRAZolam 1 mg Take 1 mg by mouth Active tablet 3 times daily as needed (anxiety). busPIRone 30 mg Take 30 mg by Active tablet mouth 2 times daily. bisacodyl 5 mg EC Take 5 mg by mouth Active tablet daily. psyllium Take 3.4 g by Active (METAMUCIL SF) mouth every 48 powder hours. Dilute in at least 8 ounces of water. zonisamide 100 mg Take 200 mg by Active capsule mouth 2 times daily. lansoprazole 30 Take 30 mg by Active mg capsule mouth 2 times daily. simethicone 80 mg Take 1 tablet (80 60 tablet 1 05/09/2016 Active chewable tablet mg total) by mouth 4 times daily as needed for Flatulence. buPROPion Take 450 mg by Active (WELLBUTRIN XL) mouth every 150 mg extended morning. release tablet 24 hour docusate 100 mg Take 200 mg by Active capsule mouth 2 times daily. sucralfate 1000 Take 1,000 mg by Active mg tablet mouth before meals and at bedtime as needed. lidocaine 5 % Apply topically 2 Active ointment times daily as needed. hydrOXYzine Take 100 mg by Active pamoate 100 mg mouth every 8 capsule hours as needed for Anxiety. albuterol 90 Use 1 Puff by Active mcg/Actuation inhalation every 4 inhaler hours as needed. polyethylene Take 17 g by mouth 30 Each 0 07/17/2016 Active glycol 3350 17 daily as needed. gram packet oxyCODONE-acetami Take 1-2 tablets 20 tablet 0 07/27/2016 Active nophen 5-325 mg by mouth every 6 per tablet hours as needed. Do NOT exceed 4000 mg of acetaminophen per 24 hours. docusate 100 mg Take 1 capsule 50 capsule 0 07/27/2016 Active capsule (100 mg total) by mouth 2 times daily as needed. lisinopril 2.5 mg Take 2.5 mg by Active tablet mouth daily. sodium chloride Use to dampen 2 Bottle 3 04/25/2016 01/15/20 Discontinued 0.9 % irrigation gauze 17 Adhesive Tape 1 Patch by Apply 10 Each 1 05/09/2016 01/15/20 Discontinued (MEDIPORE) 2 X 10 externally route 2 17 "-yard tape times daily. mirtazapine 45 mg Take 45 mg by 01/12/20 Discontinued tablet mouth at bedtime. 17 oxyCODONE-acetami Take 1-2 tablets 85 tablet 0 07/17/2016 01/12/20 Discontinued nophen 5-325 mg by mouth every 4 17 per tablet hours as needed for pain. Do NOT exceed 4000 mg of acetaminophen per 24 hours. sennosides 8.6 mg Take 1 tablet (8.6 50 tablet 0 07/27/2016 01/12/20 Discontinued tablet mg total) by mouth 17 2 times daily. Active Problems Problem Noted Date Abdominal pain, epigastric 01/10/2017 PONV (postoperative nausea and vomiting) 07/16/2016 Wound infection after surgery 04/20/2016 Sepsis (A41.9) 04/17/2016 Hypokalemia 04/07/2016 Overview: Replete potassium and monitor levels Hypophosphatemia 04/07/2016 Overview: Replete and monitor levels Marginal ulcer 04/04/2016 Gastric perforation 04/04/2016 Chronic back pain 02/26/2015 Most Recent Encounters Date Type Specialty Providers Description 01/15/2017 Nurse Triage General Care Faye Galeas Chief Comp: IP Inpatient - Adult planner chief Follow-up Call 01/10/2017 - Hospital Encounter General Care Jaciel Nguyen Dx: Abdominal pain, 01/14/2017 Inpatient - Adult MD Ruth epigastric (Primary Mikayla Phillips, Dx) Wilbert Vazquez MD Garcia, Luis J, MD 01/10/2017 - Hospital Encounter Patient Services 01/12/2017 12/04/2016 Office Visit Srg Tristen Anand Chief Comp: Patient R, Reported Reason For Visit Social History Tobacco Use Types Packs/Day Years Used Date Current Every Day Smoker Cigarettes 0.25 Smokeless Tobacco: Never Used Alcohol Use Drinks/Week oz/Week Comments No Last Filed Vital Signs Vital Sign Reading Time Taken Blood Pressure 118/68 01/14/2017 12:35 PM CDT Pulse 75 01/14/2017 12:35 PM CDT Temperature 36.9 C (98.4 F) 01/14/2017 12:35 PM CDT Respiratory Rate 18 01/14/2017 12:35 PM CDT Height 1.6 m (5' 3") 01/11/2017 12:00 AM CDT Weight 80 kg (176 lb 5.9 oz) 01/12/2017 1:18 PM CDT Body Mass Index 31.25 01/12/2017 1:18 PM CDT Oxygen Saturation 98% 01/14/2017 12:35 PM CDT Plan of Care Date Type Specialty Providers Description 02/12/2017 Appointment Acute Care Surgery Conner Garcia Chief Comp: Patient W, Reported Reason For [address] [place] [address] [phone] (Fax) Health Maintenance Due Date Last Done Comments Hepatitis B Vaccine (1 of 3 - Primary Series) 1975 Tdap Vaccine 1986 Lipid Disorder Screening 1993 MMR Vaccine 1993 Td Vaccine 1993 Pneumococcal Vaccine (1 of 1 - PPSV23) 1994 Cervical Cancer Screening 2005 Mammogram 2015 Influenza Vaccine: Seasonal (Season Ended) 2017 Results from Last 3 Months FL UPPER GI SINGLE CONTRAST W KUB (01/14/2017 8:41 AM) Impressions Impression: 1. Normal single contrast images of the esophagus. 2. Normal appearance of the gastric bypass. Normal gastrojejunal anastomosis. Narrative Procedure: FL UPPER GI SINGLE CONTRAST W KUB Clinical indication: Abdominal pain, epigastric. Patient is status post gastric bypass, evaluate for gastric gastric fistula and possible stenosis at the Gastro jejunal anastomosis. Technique: Single contrast bariumupper GI study is performed. Additional spot films of the esophagus were performed. Fluoroscopy time: 1 minute and 58 seconds Findings: In the upright position there is normal transit of contrast through the esophagus without strictures or masses. No gastroesophageal reflux observed fluoroscopically. Prone swallow demonstrates normal esophageal motility. Normal appearance of the gastric bypass. The gastric pouch measures approximately 18.3 cm in length and approximately 4.0 cm in width. Normal Gastro jejunal anastomosis. Normal opacification of the [place] loop. No retention of contrast material within the gastric pouch. Postprocedure film shows impression contrast material into the jejunum. No gastric fistula Procedure Note Bentley, Incoming Imaging Results - SatJanuary 14, 2017 9:03 AM CDT Procedure: FL UPPER GI SINGLE CONTRAST W KUB Clinical indication: Abdominal pain, epigastric. Patient is status post gastric bypass, evaluate for gastric gastric fistula and possible stenosis at the Gastro jejunal anastomosis. Technique: Single contrast barium upper GI study is performed. Additional spot films of the esophagus were performed. Fluoroscopy time: 1 minute and 58 seconds Findings: In the upright position there is normal transit of contrast through the esophagus without strictures or masses. No gastroesophageal reflux observed fluoroscopically. Prone swallow demonstrates normal esophageal motility. Normal appearance of the gastric bypass. The gastric pouch measures approximately 18.3 cm in length and approximately 4.0 cm in width. Normal Gastro jejunal anastomosis. Normal opacification of the [place] loop. No retention of contrast material within the gastric pouch. Postprocedure film shows impression contrast material into the jejunum. No gastric fistula IMPRESSION Impression: 1. Normal single contrast images of the esophagus. 2. Normal appearance of the gastric bypass. Normal gastrojejunal anastomosis. AMYLASE (01/14/2017 6:10 AM)Only the most recent of2 resultswithin the time period is included. Component Value Range Amylase 32Comment: 0-100 U/L Amylase assay methodology and reference range changed 01/05/10. Specimen Blood LIPASE (01/14/2017 6:10 AM)Only the most recent of2 resultswithin the time period is included. Component Value Range Lipase 13 13-60 U/L Specimen Blood HEPATIC FUNCTION PANEL (01/14/2017 6:10 AM) Component Value Range Albumin 3.5 3.4-4.8 g/dL ALP 80 35-104 U/L Bilirubin Total 0.1 <=1.2 mg/dL Bilirubin, Direct <0.2 0.0-0.2 mg/dL AST 14Comment: 0-32 U/L Adult reference ranges updated on 08/11/13 at 830am ALT 8Comment: 0-33 U/L The upper limit of normal for alanine aminotransferase (ALT) reference ranges for adults is controversial with some authorities recommending limit as low as 30 U/L for males and 19 U/L for females. Th ere is increased incidence of subclinical liver disease (e.g., early steatohepatitis) in patients with ALT values in the range of 31-41 U/L for males and 20-33 U/L for females. ALT values should alway s be interpreted in conjunction with clinical history, physical examination findings, and, if applicable, data from other diagnostic tests. Total Protein 6.1 6.0-8.0 g/dL Specimen Blood PHOSPHORUS (01/14/2017 6:10 AM)Only the most recent of2 resultswithin the time period is included. Component Value Range Phosphorus 2.4(L)Comment:New reference range installed 06/28/15. 2.5-4.5 mg/ dL Specimen Blood MAGNESIUM (01/14/2017 6:10 AM)Only the most recent of2 resultswithin the time period is included. Component Value Range Magnesium 2.1 1.5-2.9 mg/dL Specimen Blood BASIC METABOLIC PANEL W/ CALCIUM (CHEM 8) (01/14/2017 6:10 AM)Only the most recent of3 resultswithin the time period is included. Component Value Range Sodium 140 135-145 mEq/L Potassium 4.7 3.5-5.0 mEq/L Chloride 109(H) 95-107 mEq/L CO2 19(L) 22-29 mEq/L BUN 9(L) 10-20 mg/dL Creatinine 1.0Comment: 0.5-1.0 mg/dL Creatinine switched to enzymatic method on 01/23/2011.GFR equation switched to IDMS-traceable MDRD equation on 01/23/2011. Calculated GFR values are not valid in clinical settings where serum creatinine is changing. Glucose 84Comment: 65-99 mg/dL The Expert Committee on the Diagnosis and Classification of Diabetes has defined impaired fasting glucose as greater than or equal to 100 mg/dL but less than 126 mg/dL.(Diabetes Care 28 (Suppl 1)S41,2005) Calcium 8.3(L) 8.5-10.5 mg/dL Anion Gap 12 <17 mEq/L Calculated GFR 61 >60 mL/min/1.73 m2 Specimen Blood MICROSCOPIC URINALYSIS (01/12/2017 4:14 PM) Component Value Range White Blood Cells, Urine <1 0-5 /HPF Red Blood Cells, Urine <1 0-2 /HPF Specimen Urine URINALYSIS WITH REFLEX CULTURE (01/12/2017 4:14 PM) Component Value Range Color, Urine Straw Straw, Pale Yellow, Yellow, Clear, None Clarity, Urine Clear Clear pH, Urine 6.0 <9.0 Spec [place], Urine 1.010 1.000-1.030 Glucose, Urine Negative Negative Blood, Urine Negative Negative Ketones, Urine Negative Negative Protein, Urine Negative Negative Urobilinogen, Urine Normal Normal Bilirubin, Urine Negative Negative Leukocyte Esterase, Urine Negative Negative Nitrite, Urine Negative Negative Specimen Urine URINALYSIS WITH REFLEXED CULTURE AND MICROSCOPIC EXAM (01/12/2017 4:14 PM) Specimen Culture - Urine, Midstream clean catch Narrative The following orders were created for panel order URINALYSIS WITH REFLEXED CULTURE AND MICROSCOPIC EXAM. Procedure Abnormality Status --------- ------ URINALYSIS WITH REFLEX C...[[id number]]Normal Final result MICROSCOPIC URINALYSIS[[id number]] Normal Final result URINE CULTURE, REFLEXED[[id number]] Please view results for these tests on the individual orders. CBC (COMPLETE BLOOD COUNT) (01/12/2017 6:29 AM) Component Value Range WBC Count 13.2(H) 3.7-10.5 K/MM3 RBC Count 3.68(L) 4.00-5.20 M/MM3 Hemoglobin 8.4(L) 11.9-15.5 g/dL Hematocrit 29(L) 35-47 % MCV (Mean Corpuscular Volume) 78(L) 82-99 FL MCH (Mean Corpuscular Hemoglobin) 23(L) 25-35 PG MCHC (Mean Corpuscular Hemoglobin Concentration) 29(L) 32-36 % Platelet Count 284 150-400 K/MM3 MPV (Mean Platelet Volume) 10.1 9.4-12.3 FL RBC Dist Width-STD 45.8 36.4-46.3 FL RBC Distrib Width 16.1(H) 9.0-14.5 % Nucleated RBC 1 /100 WBC Specimen Whole Blood FECAL OCCULT BLOOD - GUAIAC (01/11/2017 8:43 PM) Component Value Range Fecal Occult Blood Screen Negative Negative Card Type HemaPrompt Specimen Stool H. PYLORI ANTIGEN, STOOL (01/11/2017 8:43 PM) Component Value Range Helicobacter Antigen, Stool NegativeComment: Negative Performed by [facility] [employer], [address] [place] [id number] [email or web address], Rizwan Tolbert MD, Lab. Director Specimen Stool Narrative Specimen Source: Specimen Start Date: BLOOD GLUCOSE, BEDSIDE (01/11/2017 5:53 PM) Component Value Range Glucose, Accu-Chek 128(H) 65-99 mg/dL Specimen Blood, capillary HELICOBACTER PYLORI ANTIBODY, IGG (01/10/2017 9:46 PM) Component Value Range Shyanne IgG, Quant 0.22 <0.75 Shyanne IgG, Qual Negative Negative Specimen Blood DIFFERENTIAL (01/10/2017 8:19 PM) Component Value Range % Neutrophils-Auto Diff 51.7 % Neutrophils-Auto Diff 3870 7410-8052 /MM3 % Lymphocytes-Auto Diff 36.9 % Lymphocytes-Auto Diff 2760 875-3300 /MM3 % Monocytes-Auto Diff 9.4 % Monocytes-Auto Diff 700 130-860 /MM3 % Eosinophils-Auto Diff 1.1 % Eosinophils-Auto Diff 80 40-390 /MM3 % Basophils 0.5 % Basophils-Auto Diff 40 10-136 /MM3 % Immature Granulocytes-Auto Diff 0.4 % Immature Granulocytes-Auto Diff 30 /MM3 Specimen Whole Blood CBC (COMPLETE BLOOD COUNT) (01/10/2017 8:19 PM) Component Value Range WBC Count 7.5 3.7-10.5 K/MM3 RBC Count 3.92(L) 4.00-5.20 M/MM3 Hemoglobin 9.0(L) 11.9-15.5 g/dL Hematocrit 30(L) 35-47 % MCV (Mean Corpuscular Volume) 76(L) 82-99 FL MCH (Mean Corpuscular Hemoglobin) 23(L) 25-35 PG MCHC (Mean Corpuscular Hemoglobin Concentration) 30(L) 32-36 % Platelet Count 323 150-400 K/MM3 MPV (Mean Platelet Volume) 9.6 9.4-12.3 FL RBC Dist Width-STD 44.7 36.4-46.3 FL RBC Distrib Width 16.4(H) 9.0-14.5 % Nucleated RBC 0 /100 WBC Specimen Whole Blood LACTIC ACID, WHOLE BLOOD ([facility]) (01/10/2017 8:19 PM) Component Value Range Lactic Acid, Whole Blood 0.8Comment: 0.5-2.0 mEq/L Glycolate, the principle toxic metabolite of ethylene glycol, can cause artifactual elevation of measured lactate. Specimen Whole Blood LIVER PANEL (01/10/2017 8:19 PM) Component Value Range Bilirubin Total 0.2 <=1.2 mg/dL AST 12Comment: 0-32 U/L Adult reference ranges updated on 08/11/13 at 830am ALT 9Comment: 0-33 U/L The upper limit of normal for alanine aminotransferase (ALT) reference ranges for adults is controversial with some authorities recommending limit as low as 30 U/L for males and 19 U/L for females. Th ere is increased incidence of subclinical liver disease (e.g., early steatohepatitis) in patients with ALT values in the range of 31-41 U/L for males and 20-33 U/L for females. ALT values should alway s be interpreted in conjunction with clinical history, physical examination findings, and, if applicable, data from other diagnostic tests. ALP 92 35-104 U/L GGT 12 5-36 U/L Albumin 4.2 3.4-4.8 g/dL Total Protein 7.0 6.0-8.0 g/dL Specimen Blood CBC WITH DIFFERENTIAL (01/10/2017 8:19 PM) Specimen Whole Blood Narrative The following orders were created for panel order CBC WITH DIFFERENTIAL. Procedure Abnormality Status --------- ------ CBC (COMPLETE BLOOD COUNT)[[id number]] AbnormalFinal result DIFFERENTIAL[[id number]] Final result Please view results for these tests on the individual orders. EXTERNAL CT-STORE& INTERPRET (01/10/2017 8:04 PM) Impressions Impression: Status post cholecystectomy, hysterectomy, and gastric surgery. No dilated bowel noted. No stricture is seen. Status post fusion of L4-5 posteriorly. Narrative Outside film interpretation requested. Patient name: Tanya Rodriguez.Exam was performed at 1415 hours on 01/10/2017 at [facility]. 202 images are provided and interpreted on the in-house PACS. Procedure: CT exam of the abdomen and pelvis with IV contrast. Technique: Exam is performed with IV contrast and consists of direct axial and sagittal and coronal reconstructions Findings: Comparison to study of 05/06/2016. Lung bases are clear. Status post cholecystectomy. 3 liver hypodensities arepresent, stable or slightly larger. Patient status post gastric surgery. Pancreas and spleen are normal. Kidneys and adrenal glands are normal. No dilated bowel noted. Abdominal wall fluid collection or abscess has resolved. Partial sacralization of L5 on the left. Patient is status post fusion of the lower lumbar spine, L4-5. The patient status post hysterectomy. Procedure Note Bentley, Incoming Imaging Results - SatJan 11, 2017 5:39 PM CDT Outside film interpretation requested. Patient name: Tanya Rodriguez. Exam was performed at 1415 hours on 01/10/2017 at [facility]. 202 images are provided and interpreted on the in-house PACS. Procedure: CT exam of the abdomen and pelvis with IV contrast. Technique: Exam is performed with IV contrast and consists of direct axial and sagittal and coronal reconstructions Findings: Comparison to study of 05/06/2016. Lung bases are clear. Status post cholecystectomy. 3 liver hypodensities are present, stable or slightly larger. Patient status post gastric surgery. Pancreas and spleen are normal. Kidneys and adrenal glands are normal. No dilated bowel noted. Abdominal wall fluid collection or abscess has resolved. Partial sacralization of L5 on the left. Patient is status post fusion of the lower lumbar spine, L4-5. The patient status post hysterectomy. IMPRESSION Impression: Status post cholecystectomy, hysterectomy, and gastric surgery. No dilated bowel noted. No stricture is seen. Status post fusion of L4-5 posteriorly.
[2017-01-17] MEDS ORDERED: PROMETHAZINE HCL 25 MG in DEXTROSE 5 % IN WATER 50 ML IV ONE ×2 (10:08)
[2017-01-17] MEDS ORDERED: NORMAL SALINE 1,000 ML IV ONE (10:08)
--- NOTE | 2017-01-17 10:21 | ERNOTE ---
Abdominal HPI - Narrative Date of Service: 01/17/17 - General Chief Complaint: Abdominal Pain Time Seen by Provider: 01/17/17 09:51 Source: patient Exam Limitations: no limitations - Immun/Allergies/Home Medications Immunizatons: IMMUNIZATION HX Immunizations Up to Date Yes History of Influenza Vaccine Yes Hx Pneumococcal Vaccination No Allergies/Adverse Reactions: Allergies No Known Drug Allergies Allergy (Verified 01/10/17 11:49) Home Medications: HOME MEDICATIONS Lansoprazole [Prevacid] 30 mg PO DAILY 08/17/12 [Last Taken 01/29/16] Albuterol Sulfate [Albuterol Sulfate Hfa] 2 puff IH Q4H PRN 09/24/13 [Last Taken Unknown] Bupropion HCl [Wellbutrin Xl] 150 mg PO HS 10/11/13 [Last Taken 01/28/16 21:00] Alprazolam [Xanax Xr] 2 mg PO BID 01/29/16 [Last Taken 01/29/16] Bupropion HCl [Wellbutrin] 300 mg PO DAILY 01/29/16 [Last Taken 01/29/16] Zonisamide 50 mg PO TID 01/29/16 [Last Taken 01/29/16 17:00] hydrOXYzine PAMOATE [Vistaril] 100 mg PO BID 01/30/16 [Last Taken 01/29/16] Bisacodyl [Laxative] 5 mg PO Q48H PRN #60 tablet 03/11/16 [Last Taken Unknown] Polyethylene Glycol 3350 [Miralax] 17 gm PO BID #1 bottle 03/11/16 [Last Taken Unknown] Psyllium Husk (with Sugar) [Metamucil] 1 each PO BID #1 bottle 03/11/16 [Last Taken Unknown] HYDROcodone/ACETAMINOPHEN [[place] 7.5-325 Tablet] 1 each PO TID 01/10/17 [Last Taken Unknown] Lisinopril [Zestril] 2.5 mg PO DAILY 01/10/17 [Last Taken Unknown] Levofloxacin [Levaquin] 750 mg PO DAILY #10 tab 01/17/17 [Last Taken Unknown] Sodium Chloride/Nahco3/KCl/Peg [Trilyte with Flavor Packets] 4,000 ml PO PRN PRN #2 soln.recon 01/17/17 [Last Taken Unknown] - History of Present Illness Narrative: Pt. comes in with c/o abdominal pain, distention, inability to eat or have a BM , sob, cough, and ingested fluid reflux. Pt. was seen here twice in the past two weeks and seen at [facility] for abdominal pain and inability to swallow and was sent home both times without treatment of symptoms as reported by pt. 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 Pt. states since returning home she has been fevered with the same symptoms plus respiratory symptoms. Pt. denies any prehospital treatment prior to arrival. Review of Systems - Review of Systems Constitutional: Present: recent illness, fever, chills, diaphoresis, weakness, fatigue, malaise, decreased activity level EYE: Present: no symptoms reported ENT: Present: nose congestion, nasal drainage. Absent: ear pain, sore throat Respiratory: Present: shortness of breath, cough. Absent: wheezing Cardiology: Present: no symptoms reported. Absent: chest pain, palpitations, edema Gastrointestinal/Abdominal: Present: nausea, abdominal pain, eating less. Absent: vomiting, diarrhea Genitourinary: Present: no symptoms reported. Absent: pain, decreased urinary output Musculoskeletal: Present: no symptoms reported. Absent: back pain, joint pain Skin: Present: no symptoms reported. Absent: rash, change in hair/nails Neurological: Present: no symptoms reported. Absent: headache, dizziness/light- headedness, numbness, tingling All Other Systems: All systems neg except as marked - Patient's Past Medical History Patient History - Medical: ADHD, Anxiety, Chronic Pain, Diabetes Type 2, Depression, Migraines Patient History - Cardiac/Respiratory: No pertinent hx Patient History - Cancer: No Hx of Cancer Patient History - Surgical Procedures: Back Surgery, Cholecystectomy, Colon Resection, Colonoscopy, EGD, Gastric Bypass, Hysterectomy, Tubal Ligation, Other Patient History - Other: None - Family History Mother Family History - Medical: History Unknown faher Family History - Medical: History Unknown, Other Family History - Cardiac/Respiratory: Coronary Heart Disease - Social History Living Situations: home Abuse History: No History of abuse Psych History: No pertinent hx Does anyone smoke in the home?: Yes Alcohol Use: none Drug Use: none - Immunizations Immunizations Up to Date: Yes Hx Pneumococcal Vaccination: No History of Influenza Vaccine: Yes Physical Exam - Physical Exam General Appearance: Present: wd/wn, alert, no apparent distress Eye Exam: Normal inspection: bilateral, PERRL: bilateral, EOMI: bilateral Ears, Nose, Throat: Present: normal ENT inspection, normal pharynx Neck: Present: normal inspection, nontender. Absent: lymphadenopathy (R), lymphadenopathy (L) Respiratory: Present: no respiratory distress, no accessory muscle use, chest nontender, crackles - B bases, rhonchi - BUL, wheezing - exp RUL Cardiovascular/Chest: Present: regular rate, rhythm, no murmur, normal peripheral pulses Gastrointestinal/Abdominal: Present: tenderness - diffuse, abnormal bowel sounds - hypo tympanum BUQ rare BLQ, distended Back Exam: Present: normal inspection, normal range of motion, no CVA tenderness , no vertebral tenderness Extremity Exam: Present: normal inspection, non-tender, normal range of motion, no edema Skin Exam: Present: warm/dry, diaphoresis, other - bruising on B inner arms and feet from recent venipuncture and red edematous are R inner forearm ED Progress - Date and Time Seen: Date and Time: 01/17/17 14:[address] Irving and he states that pt. does not have a fistula but does have an extreme;ly small pouch. We feel that if pt. were to start her small eating pattern for post homer en y that she would have less complications as she is having at this time. Explained this to pt. - Results and Orders Patient's Lab Results:: I have reviewed the patient's lab results. - Vital Signs Patient's Vital Signs:: I have reviewed the patient's vital signs. Vital Signs: Vital Signs 01/17/17 09:46 Temperature 36.3 C L Respiratory 16 Rate Blood Pressure 127/84 O2 Sat by Pulse 97 Oximetry - X-Ray X-Ray #1 X-Ray: chest Interpretation: Reviewed by me X-ray Comments: RLL pneumonia - CT/Ultrasound CT/Ultrasound Narrative: CT scan with notable gastric air and debris in stomach remnant and duodenal sweep. - Progress/Reassessment Chief Complaint: Abdominal Pain Departure - Departure Clinical Impression: History of Homer-en-Y gastric bypass Pneumonia Qualifiers: Pneumonia type: aspiration pneumonia Aspiration pneumonia type: due to regurgitated food Laterality: right Lung location: lower lobe of lung Qualified Code(s): J69.0 - Pneumonitis due to inhalation of food and vomit Disposition: Home self-care Condition: Good Instructions: Gastric Bypass Surgery, Care After, Community-Acquired Pneumonia , Adult, [id number] Additional Instructions: No metamucil or mag citrate. May take miralax and go lytely for constipation. No soda or caffeine. eat 2 oz of foods or liquids at a time. Referrals: Bernardo Resendez DO [Primary Care Provider] - Prescriptions: Levofloxacin [Levaquin] 750 mg PO DAILY #10 tab Sodium Chloride/Nahco3/KCl/Peg [Trilyte with Flavor Packets] 4,000 ml PO PRN PRN #2 soln.recon PRN Reason: Constipation
[2017-01-17 10:31] LABS: Hematocrit 31.4 % (37.0-47.0); Hemoglobin 9.3 gm/dL (12.5-16.0); Mean Cell Volume 75.8 fl (78-100); Mean Corpuscular Hemoglobin 22.5 pg (27-31); Mean Corpuscular Hgb Conc 29.6 g/dl (32-36); Mean Platelet Volume 9.1 fl (6.0-9.5); Neutrophil # 3.5 K/mm3 (1.3-6.0); Neutrophil % 64.6 % (42-75.0); Platelet Count 413 K/mm3 (150-450); Red Blood Count 4.14 M/mm3 (4.2-5.4); Red Cell Distribution Width 16.4 % (11.5-14.0); White Blood Count 5.4 K/mm3 (4.0-10.5)
[2017-01-17 10:47] LABS: Albumin * 3.5 gm/dl (3.4-5.0); Anion Gap 14.3 mmol/L (6.8-13.8); BUN/Creatinine Ratio 14.4 (9.0-21.6); Bilirubin, Total 0.2 mg/dL (0.0-1.1); Ca. Corrected For Albumin 9.2 mg/dL (8.4-10.2); Calcium * 9.1 mg/dL (7.9-10.9); Carbon Dioxide 24.7 mmol/L (24-32.6); Total Protein 8.1 gm/dL (6.2-8.2)
[2017-01-17] MEDS ORDERED: KETOROLAC TROMETHAMINE 30 MG/ML VIAL IV ONE (11:04)
[2017-01-17] MEDS ORDERED: KETOROLAC TROMETHAMINE 30 MG/ML VIAL ONE (11:06)
[2017-01-17] MEDS ORDERED: DIATRIZOATE MEGLU/DIATRIZO SOD 30 ML BTL ONE (11:07)
[2017-01-17] MEDS ORDERED: DIATRIZOATE MEGLU/DIATRIZO SOD 30 ML BTL PO ONE (11:10)
[2017-01-17] MEDS ORDERED: LEVOFLOXACIN/D5W 750 MG/150 ML BAG IV ONE (13:11)
[2017-01-17 13:18] LABS: Urine Bilirubin Negative (NEGATIVE); Urine Blood Negative /ul (NEGATIVE); Urine Ketone 5 mg/dL (NEGATIVE); Urine Nitrite Negative (NEGATIVE); Urine Protein Negative (NEGATIVE); Urine Urobilinogen Normal (NORMAL)
[2017-01-17 13:26] LABS: Urine Appearance Clear; Urine Bacteria None Seen; Urine Color Yellow; Urine RBC None Seen /hpf (0-5); Urine WBC None Seen /hpf (0-5)
[2017-01-17] MEDS ORDERED: NALBUPHINE HCL 20 MG/ML AMPUL ONE ×2 (13:28→14:57)
[2017-01-17] MEDS ORDERED: NALBUPHINE HCL 20 MG/ML AMPUL IV ONE ×2 (13:28→14:49)
[2017-01-17 13:33] VITALS: BP 128/69
[2017-01-17] MEDS ORDERED: LORazepam 2 MG/ML DISP.SYRIN IV ONE ×2 (13:57→14:49)
[2017-01-17] MEDS ORDERED: LORazepam 2 MG/ML DISP.SYRIN ONE ×2 (13:58→14:57)
== END 2017-01-17 15:10 | disposition home or self-care (01) ==
LOC: ER 09:34
DX: J69.0 Pneumonitis due to inhalation of food and vomit (principal); Z98.84 Bariatric surgery status

== ENCOUNTER 2017-01-18 21:11 | Emergency (ER) | payer MEDICARE, OTHER ==
--- OUTSIDE RECORDS SUMMARY | 2017-01-18 21:25 | XMS REPORT | Continuity of Care Document ---
:1975 Author Organization [facility] [place] [address] Care Team Providers Name Role Phone Bernardo Resendez V Primary Care Provider [phone] Source Comments This disclosure is being made pursuant to the [employer] program and may contain all information available regarding this patient.[facility] Active Allergies and Adverse Reactions Allergen Noted [...] Recent Encounters Date Type Specialty Providers Description 01/17/2017 Refill Family Bisi Thomas RN 01/16/2017 Refill Family Medicine Bisi Low RN 01/04/2017 Office Visit Family Medicine Bernardo Resendez DO Generalized abdominal pain (Primary Dx); Constipation, unspecified constipation type; Acute non-recurrent maxillary sinusitis; Chronic low back pain without sciatica, unspecified back pain laterality 12/31/2016 Office Visit Family Bernardo Murguia DO Weight gain ( Primary Dx); Chronic [...] 01/04/2017 2:13 PM CDT Plan of Care Date Type Specialty Providers Description 01/24/2017 Appointment Family Medicine Bernardo Resendez DO [address] [place] [id number] [phone] (Fax) Health Maintenance Due Date Last Done [...]
--- OUTSIDE RECORDS SUMMARY | 2017-01-18 21:26 | XMS REPORT | Continuity of Care Document ---
:1975 Author Organization [facility] ([facility]) Address [address] [place] [address] Phone [phone] Care Team Providers Name Role Phone Bernardo Resendez Primary Care Provider [phone] Source Comments This disclosure is being made pursuant to the Care Everywhere program, applicable federal and state laws, and may not contain all informaitonavailable regarding this patient.[facility] ([facility]) Active Allergies and Adverse Reactions Allergen [...] Encounters Date Type Specialty Providers Description 01/17/2017 Hospital Encounter Patient Services 01/15/2017 Nurse Triage General [facility] Faye Galeas, Chief Comp: Inpatient - Adult balancer Follow-up Call 01/10/2017 - Hospital Encounter General Care Jaciel Nguyen Dx: Abdominal pain, 01/14/2017 Inpatient - Adult MD Ruth epigastric (Primary Alan Mikayla Araseli, Dx) Wilbert Vazquez MD Garcia, Luis J, [...] Care Surgery Conner Garcia Chief Comp: Patient WMD Reported Reason For [address] [place] [address] [phone] (Fax) Health Maintenance Due Date Last Done [...] Clear Clear pH, Urine 6.0 <9.0 Spec Mosby, Urine 1.010 1.000-1.030 Glucose, Urine Negative Negative [...] Abnormality Status --------- ------ URINALYSIS WITH REFLEX C...[[id number]]Normal Final result MICROSCOPIC URINALYSIS[[id number]] Normal Final result URINE CULTURE, REFLEXED[[id number]] Please view results for these tests on [...] Helicobacter Antigen, Stool NegativeComment: Negative Performed by [facility], [address] [place] [id number] [email or web address]), Rizwan Tolbert MD, Lab. Director Specimen Stool [...] Neutrophils-Auto Diff 51.7 % Neutrophils-Auto Diff 3870 [id number] /MM3 % Lymphocytes-Auto Diff 36.9 % Lymphocytes-Auto [...] Abnormality Status --------- ------ CBC (COMPLETE BLOOD COUNT)[[id number]] AbnormalFinal result DIFFERENTIAL[[id number]] Final result Please view results for these tests on the individual orders. EXTERNAL CT-STORE& INTERPRET (01/10/2017 8:04 PM) Impressions Impression: Status post cholecystectomy, hysterectomy, and gastric surgery. No dilated bowel noted. No stricture is seen. Status post fusion of L4-5 posteriorly. Narrative Outside film interpretation requested. Patient name: Tanya Rodriguez.Exam was performed at 1415 hours on 01/10/2017 at [facility]. 202 images are provided and interpreted [...] performed at 1415 hours on 01/10/2017 at [facility]. 202 images are provided and interpreted [...]
[2017-01-18 21:28] VITALS: BP 115/69
[2017-01-18 21:43] LABS: Hematocrit 27.8 % (37.0-47.0); Hemoglobin 8.1 gm/dL (12.5-16.0); Mean Cell Volume 77.9 fl (78-100); Mean Corpuscular Hemoglobin 22.7 pg (27-31); Mean Corpuscular Hgb Conc 29.1 g/dl (32-36); Mean Platelet Volume 9.5 fl (6.0-9.5); Neutrophil # 2.1 K/mm3 (1.3-6.0); Neutrophil % 39.4 % (42-75.0); Platelet Count 405 K/mm3 (150-450); Red Blood Count 3.57 M/mm3 (4.2-5.4); Red Cell Distribution Width 16.9 % (11.5-14.0); White Blood Count 5.4 K/mm3 (4.0-10.5)
--- NOTE | 2017-01-18 21:49 | ERNOTE ---
Abdominal HPI - General Chief Complaint: Abdominal Pain Time Seen by Provider: 01/18/17 21:18 Source: patient Exam Limitations: no limitations - Immun/Allergies/Home Medications Immunizatons: IMMUNIZATION HX Immunizations Up to Date Yes History of Influenza Vaccine Yes Hx Pneumococcal Vaccination No Allergies/Adverse Reactions: Allergies No Known Drug Allergies Allergy (Verified 01/18/17 21:27) Home Medications: HOME MEDICATIONS Lansoprazole [Prevacid] 30 mg PO DAILY 08/17/12 [Last Taken 01/29/16] Albuterol Sulfate [Albuterol Sulfate Hfa] 2 puff IH Q4H PRN 09/24/13 [Last Taken Unknown] Bupropion HCl [Wellbutrin Xl] 150 mg PO HS 10/11/13 [Last Taken 01/28/16 21:00] Alprazolam [Xanax Xr] 2 mg PO BID 01/29/16 [Last Taken 01/29/16] Bupropion HCl [Wellbutrin] 300 mg PO DAILY 01/29/16 [Last Taken 01/29/16] Zonisamide 50 mg PO TID 01/29/16 [Last Taken 01/29/16 17:00] hydrOXYzine PAMOATE [Vistaril] 100 mg PO BID 01/30/16 [Last Taken 01/29/16] Bisacodyl [Laxative] 5 mg PO Q48H PRN #60 tablet 03/11/16 [Last Taken Unknown] Polyethylene Glycol 3350 [Miralax] 17 gm PO BID #1 bottle 03/11/16 [Last Taken Unknown] Psyllium Husk (with Sugar) [Metamucil] 1 each PO BID #1 bottle 03/11/16 [Last Taken Unknown] HYDROcodone/ACETAMINOPHEN [[place] 7.5-325 Tablet] 1 each PO TID 01/10/17 [Last Taken Unknown] Lisinopril [Zestril] 2.5 mg PO DAILY 01/10/17 [Last Taken Unknown] Fluconazole [Diflucan] 150 mg PO ONCE #1 tab 01/17/17 [Last Taken Unknown] Levofloxacin [Levaquin] 750 mg PO DAILY #10 tab 01/17/17 [Last Taken Unknown] Sodium Chloride/Nahco3/KCl/Peg [Trilyte with Flavor Packets] 4,000 ml PO PRN PRN #2 soln.recon 01/17/17 [Last Taken Unknown] - History of Present Illness Narrative: pt has had abdominal pains for months. She is here for abd pain of 8-9/10 right now. Initially she refused to see me and demanded provider Ashlie but then changed her mind and agreed to see me. She complains of diffuse belly pain, no nausea. she states she has only had a small amount of liquids to drink today but she is here for her abd pain at this time. Denies nausea or vomiting, or diarrhea. She states that her abdominal pain has gotten significantly worse since this morning. He presented to our emergency room with similar complaints , but not as bad yesterday morning. At that time she was diagnosed with pneumonia. GI the abdomen did not reveal a small bowel obstruction yesterday. Review of Systems - Review of Systems Constitutional: Present: fatigue EYE: Present: no symptoms reported ENT: Present: no symptoms reported Respiratory: Present: no symptoms reported - recent diagnosis of pneumonia but pt is being treated for this and has no repiratory symptoms or complaints Cardiology: Present: no symptoms reported Gastrointestinal/Abdominal: Present: See HPI Genitourinary: Present: no symptoms reported Musculoskeletal: Present: no symptoms reported Skin: Present: no symptoms reported - Patient's Past Medical History Patient History - Medical: ADHD, Anxiety, Chronic Pain, Diabetes Type 2, Depression, Migraines Patient History - Cardiac/Respiratory: No pertinent hx Patient History - Cancer: No Hx of Cancer Patient History - Surgical Procedures: Back Surgery, Cholecystectomy, Colon Resection, Colonoscopy, EGD, Gastric Bypass, Hysterectomy, Tubal Ligation, Other Patient History - Other: None - Family History Mother Family History - Medical: History Unknown faher Family History - Medical: History Unknown, Other Family History - Cardiac/Respiratory: Coronary Heart Disease - Social History Living Situations: home Abuse History: No History of abuse Psych History: No pertinent hx Does anyone smoke in the home?: Yes Alcohol Use: none Drug Use: none - Immunizations Immunizations Up to Date: Yes Hx Pneumococcal Vaccination: No History of Influenza Vaccine: Yes Physical Exam - Physical Exam General Appearance: Present: wd/wn, alert - lips appear slightly dry Eye Exam: Normal inspection: bilateral, PERRL: bilateral Ears, Nose, Throat: Present: normal ENT inspection Neck: Present: normal inspection, nontender, supple, full range of motion Respiratory: Present: no respiratory distress, normal breath sounds, no accessory muscle use, chest nontender, lungs clear Cardiovascular/Chest: Present: regular rate, rhythm, no murmur, normal peripheral pulses Gastrointestinal/Abdominal: Present: normal bowel sounds, nondistended, soft, other - no rebound Rectal Exam: Present: nontender, normal rectal tone, other - patient's rectal exam is not positive for bright red blood and it is guaiac negative Back Exam: Present: normal inspection, normal range of motion, no CVA tenderness , no vertebral tenderness Extremity Exam: Present: normal inspection, non-tender, normal range of motion Neurological Exam: Present: alert, oriented, normal mood/affect ED Progress - Results and Orders Patient's Lab Results:: I have reviewed the patient's lab results. - Vital Signs Patient's Vital Signs:: I have reviewed the patient's vital signs. Vital Signs: Vital Signs 01/18/17 21:23 Temperature 36.1 C L Pulse Rate 84 Respiratory 16 Rate Blood Pressure 115/69 O2 Sat by Pulse 98 Oximetry - Progress/Reassessment Chief Complaint: Abdominal Pain Plan - Plan Plan: In light of this patient's persistent and worsening abdominal pain, and a drop in hemoglobin from 9.3 yesterday morning to 7.7 this evening this examiner is extremely concerned that this patient may be bleeding somewhere. Her rectal exam is negative for bright red blood, and it is guaiac negative. Intent is to have diffuse abdominal pain with no rebound on my exam at this time our facility surgeon was consulted and in light of her previous gastric bypass and a Homer-en-Y procedure our facility is unable to provide care of a surgical nature for this patient, should she need it. As time patient was consulted and we agreed to contact the [facility] to transfer the patient to a facility with a higher level of care. She remains hemodynamically stable at this time which means that she may have an acute bleed somewhere. Site of this potential bleeding is unfounded as of yet. Departure - Departure Clinical Impression: Low hemoglobin Abdominal pain Qualifiers: Abdominal location: generalized Qualified Code(s): R10.84 - Generalized abdominal pain Disposition: [facility] Condition: Stable
[2017-01-18 21:58] LABS: Albumin * 2.9 gm/dl (3.4-5.0); Anion Gap 13.5 mmol/L (6.8-13.8); BUN/Creatinine Ratio 14.3 (9.0-21.6); Ca. Corrected For Albumin 8.7 mg/dL (8.4-10.2); Calcium * 8.1 mg/dL (7.9-10.9); Carbon Dioxide 21.9 mmol/L (24-32.6); Potassium 4.4 mmol/L (3.4-4.6); Total Protein 6.6 gm/dL (6.2-8.2)
[2017-01-18 22:21] LABS: Bilirubin, Total 0.1 mg/dL (0.0-1.1)
[2017-01-18] MEDS ORDERED: NORMAL SALINE 1,000 ML IV ONE (22:30)
[2017-01-18 23:30] LABS: Hematocrit 26.4 % (37.0-47.0); Mean Cell Volume 78.1 fl (78-100); Mean Corpuscular Hemoglobin 22.8 pg (27-31); Mean Corpuscular Hgb Conc 29.2 g/dl (32-36); Mean Platelet Volume 8.4 fl (6.0-9.5); Platelet Count 321 K/mm3 (150-450); Red Blood Count 3.38 M/mm3 (4.2-5.4); Red Cell Distribution Width 16.9 % (11.5-14.0); White Blood Count 5.5 K/mm3 (4.0-10.5)
[2017-01-18 23:32] LABS: Hemoglobin 7.7 gm/dL (12.5-16.0)
[2017-01-19] MEDS ORDERED: PROMETHAZINE HCL 25 MG in DEXTROSE 5 % IN WATER 50 ML IV ONE ×2 (00:23)
[2017-01-19] MEDS ORDERED: fentaNYL CITRATE/PF 50 MCG/ML AMPUL IV ONE (00:23)
[2017-01-19] MEDS ORDERED: HYDROmorphone HCL 1 MG/ML DISP.SYRIN IV ONE (00:53)
[2017-01-19] MEDS ORDERED: HYDROmorphone HCL 1 MG/ML DISP.SYRIN ONE (01:26)
== END 2017-01-19 01:45 | disposition short-term general hospital (02) ==
LOC: ER 21:11
DX: D64.9 Anemia, unspecified (principal); R10.84 Generalized abdominal pain; F41.8 Other specified anxiety disorders